=== PATIENT | female | born 1955 | race Caucasian/White ===

== ENCOUNTER → 2020-12-10 | Outpatient (CLI) | payer MEDICARE, OTHER ==
--- NOTE | 2020-12-14 10:59 | MM ---
Reason for exam: screening (asymptomatic). Last mammogram was performed 10 years and 3 months ago. History: Patient is postmenopausal. Took hormonal contraceptives for 1 year. Physical Findings: A clinical breast exam by your physician is recommended on an annual basis and results should be correlated with mammographic findings. MG 3D Screening Mammo W/Cad Bilateral CC and MLO view(s) were taken. Prior study comparison: December 02, 2019, mammogram, performed at [facility]. November 14, 2018, mammogram, performed at [facility]. August 02, 2017, mammogram, performed at [facility]. June 29, 2016, mammogram, performed at [facility]. April 25, 2013, mammogram, performed at [facility]. There are scattered fibroglandular densities. No significant changes when compared with prior studies. ASSESSMENT: Benign, BI-RAD 2 RECOMMENDATION: Routine screening mammogram of both breasts in 1 year.
== END | disposition home or self-care (01) ==
LOC: RADMAMWWP 13:56
PROVIDERS: ATTEND Family Medicine
DX: Z12.31 Encounter for screening mammogram for malignant neoplasm of breast (principal)
CPT/HCPCS: 77063; 77067

== ENCOUNTER 2020-12-28 23:06 | Emergency (ER) | payer MEDICARE, OTHER ==
[2020-12-28 23:47] VITALS: BP 138/75; PULSE 71; RESP 18; TEMP 98.3
[2020-12-29] MEDS ORDERED: PANTOPRAZOLE 40 MG/10 ML VIAL IVP STA (00:09)
[2020-12-29] MEDS ORDERED: HYDROmorphone 1 MG/ML 1 ML SYRINGE IVP STA (00:11)
--- NOTE | 2020-12-29 00:12 | ED ---
Abdominal Pain HPI - General Chief Complaint: Abdominal Pain Stated Complaint: Side/Back Pain Time Seen by Provider: 12/28/20 23:25 Source: patient, RN notes reviewed, old records reviewed Mode of arrival: ambulatory Limitations: no limitations - History of Present Illness Initial Comments: This is a 65-year-old female fevers. Patient presents today for evaluation of severe right flank pain right lower quadrant abdominal pain patient otherwise has no history of bariatric surgery. Patient denying any fevers. Symptoms have nausea without vomiting. No diarrhea. No other surgeries. MD Complaint: abdominal pain -: days(s) Location: diffuse, RLQ Radiation: RLQ, R flank Migration to: suprapubic Severity: moderate Severity scale (1-10): 4 Quality: cramping, stabbing Consistency: constant Improves With: nothing Worsens With: nothing Associated Symptoms: nausea Treatments Prior to Arrival: prescription analgesics - Related Data Allergies Allergy/AdvReac Type Severity Reaction Status Date / Time morphine AdvReac Rapid Verified 12/28/20 23:45 Heart Rate Penicillins AdvReac Anaphylaxis Verified 12/28/20 23:45 Sulfa (Sulfonamide AdvReac Rash/Hives Verified 12/28/20 23:45 Antibiotics) Review of Systems ROS Statement: Those systems with pertinent positive or pertinent negative responses have been documented in the HPI. ROS Other: All systems not noted in ROS Statement are negative. Past Medical History Past Medical History: Asthma History of Any Multi-Drug Resistant Organisms: None Reported Past Surgical History: Bariatric Surgery, Joint Replacement, Orthopedic Surgery Past Psychological History: No Psychological Hx Reported Smoking Status: Former smoker Past Alcohol Use History: Occasional Past Drug Use History: None Reported General Exam Limitations: no limitations General appearance: alert, in no apparent distress Head exam: Present: atraumatic, normocephalic, normal inspection Eye exam: Present: normal appearance, PERRL, EOMI. Absent: scleral icterus, conjunctival injection, periorbital swelling ENT exam: Present: normal exam, mucous membranes moist Neck exam: Present: normal inspection. Absent: tenderness, meningismus, lymphadenopathy Respiratory exam: Present: normal lung sounds bilaterally. Absent: respiratory distress, wheezes, rales, rhonchi, stridor Cardiovascular Exam: Present: regular rate, normal rhythm, normal heart sounds. Absent: systolic murmur, diastolic murmur, rubs, gallop, clicks GI/Abdominal exam: Present: soft, normal bowel sounds. Absent: distended, tenderness, guarding, rebound, rigid Extremities exam: Present: normal inspection, full ROM, normal capillary refill. Absent: tenderness, pedal edema, joint swelling, calf tenderness Back exam: Present: normal inspection Neurological exam: Present: alert, oriented X3, CN II-XII intact Psychiatric exam: Present: normal affect, normal mood Skin exam: Present: warm, dry, intact, normal color. Absent: rash Course Vital Signs 12/28/20 23:40 Temperature 98.3 F Pulse Rate 71 Respiratory 18 Rate Blood Pressure 138/75 O2 Sat by Pulse 98 Oximetry - Reevaluation(s) Reevaluation #1: 12/29/20 01:02 Medical record is reviewed Reevaluation #2: 12/29/20 02:04 Patient symptoms are much improved Reevaluation #3: 12/29/20 02:05 At this point patient feels good for discharge Reevaluation #4: 12/29/20 02:05 Patient's informed results and questions answered Medical Decision Making - Medical Decision Making 65 female to the ER for evaluation of abdominal pain right-sided kidney stone. Ration his pain is well-controlled currently and can be discharged home - Lab Data Result diagrams: 12/29/20 00:32 Lab Results 12/29/20 12/29/20 12/29/20 Range/Units 00:32 00:32 00:32 Sodium 141 (137-145) mmol/L Potassium 4.5 (3.5-5.1) mmol/L Chloride 108 H (98-107) mmol/L Carbon Dioxide 25 (22-30) mmol/L Anion Gap 8 mmol/L BUN 28 H (7-17) mg/dL Creatinine 1.01 (0.52-1.04) mg/dL Est GFR (CKD-EPI)AfAm 68 (>60 ml/min/1.73 sqM) Est GFR (CKD-EPI)NonAf 59 (>60 ml/min/1.73 sqM) Glucose 113 H (74-99) mg/dL Plasma Lactic Acid Efrain 0.7 (0.7-2.0) mmol/L Calcium 9.3 (8.4-10.2) mg/dL Total Bilirubin 0.5 (0.2-1.3) mg/dL AST 101 H (14-36) U/L ALT 88 H (4-34) U/L Alkaline Phosphatase 106 (38-126) U/L Total Protein 7.0 (6.3-8.2) g/dL Albumin 4.0 (3.5-5.0) g/dL Amylase 52 (30-110) U/L Lipase 149 (23-300) U/L Urine Color Yellow Urine Appearance Clear (Clear) Urine pH 6.0 (5.0-8.0) Ur Specific [place] 1.027 (1.001-1.035) Urine Protein Trace H (Negative) Urine Glucose (UA) Negative (Negative) Urine Ketones Negative (Negative) Urine Blood Trace H (Negative) Urine Nitrite Negative (Negative) Urine Bilirubin Negative (Negative) Urine Urobilinogen 3.0 (<2.0) mg/dL Ur Leukocyte Esterase Negative (Negative) Urine RBC 18 H (0-5) /hpf Urine WBC <1 (0-5) /hpf Ur Squamous Epith Cells 1 (0-4) /hpf Urine Mucus Rare H (None) /hpf - Radiology Data Radiology results: report reviewed (CT head and pelvis is positive for right flank pain), image reviewed Disposition Clinical Impression: Abdominal pain, Calculus of kidney, Right ureteral calculus Disposition: HOME SELF-CARE Condition: Good Instructions (If sedation given, give patient instructions): Kidney Stones (ED) Is patient prescribed a controlled substance at d/c from ED?: No Referrals: David Roland III, MD [Primary Care Provider] - 1-2 days
[2020-12-29 00:59] LABS: Appearance,Urine Clear (Clear); Bilirubin,Urine Negative (Negative); Blood,Urine Trace (Negative); Color,Urine Yellow; Glucose,Urine (UA) Negative (Negative); Ketones,Urine Negative (Negative); Leukocyte Esterase,Urine Negative (Negative); Mucus,Urine Rare /hpf; Nitrite,Urine Negative (Negative); Protein,Urine Trace (Negative); RBC,Urine 18 /hpf (0-5); Specific Gravity,Urine 1.027 (1.001-1.035); Squamous Epithelial Cell,Urine 1 /hpf (0-4); WBC,Urine <1 /hpf (0-5)
[2020-12-29 01:12] LABS: Calcium 9.3 mg/dL (8.4-10.2); Potassium 4.5 mmol/L (3.5-5.1); Total Bilirubin 0.5 mg/dL (0.2-1.3)
--- NOTE | 2020-12-29 01:49 | CT ---
EXAMINATION TYPE: CT abdomen pelvis w con DATE OF EXAM: 12/29/2020 COMPARISON: 06/30/2010 HISTORY: pain CT DLP: 1877.7 mGycm Automated exposure control for dose reduction was used. CONTRAST: Performed with IV Contrast, patient injected with 100 mL of Isovue 300. Images obtained from the diaphragm to the floor the pelvis with IV contrast. Lung bases are clear of infiltrate. There is no pleural effusion. Heart size is normal. There is no p ericardial effusion. There is previous gastric bariatric surgery. Liver is intact. There are clips fr om cholecystectomy. The bile ducts are not dilated. Spleen is intact. There is no evidence of pancrea tic mass. There is no adrenal mass. There is bilateral renal parapelvic cysts. There is right-sided hydronephro sis and hydroureter. There is obstructing 3 mm calculus distal right ureter. Bladder distends smoothl y. There is normal excretion on the left side. There is no retroperitoneal adenopathy. There is no ev idence of a pelvic mass. There is no inguinal hernia. There is no free fluid in the pelvis. There is no mesenteric edema. There is no ascites or free air. There is no sign of a bowel obstructio n. Appendix is not seen. There is no sign of thickened appendix. Lumbar vertebra have fairly normal alignment. There is no compression fracture. The bony pelvis is in tact. The hip joints are intact. There is a minimal degenerative subluxation at L3-4. IMPRESSION: Obstructing calculus distal right ureter with right-sided hydronephrosis and hydroureter. No other ca lculus seen. Renal parapelvic cysts. Renal cysts appear increased compared to old exam.
[2020-12-29] MEDS ORDERED: TAMSULOSIN 0.4 MG CAP.ER.24H PO STA (02:04)
[2020-12-29] MEDS ORDERED: ONDANSETRON 4 MG ODT STARTER PACK 2 TAB BTL PO STA (02:04)
[2020-12-29] MEDS ORDERED: IBUPROFEN 600 MG STARTER PACK 4 TAB BTL PO STA (02:04)
[2020-12-29] MEDS ORDERED: KETOROLAC 15 MG/ML 1 ML VIAL IVP STA (02:04)
[2020-12-29] MEDS ORDERED: ACET/COD 300 MG/30 MG STARTER PACK 6 TAB BTL PO STA (02:04)
[2020-12-29 02:07] LABS: HCT 37.3 % (34.0-46.0); HGB 11.7 gm/dL (11.4-16.0); MCH 26.3 pg (25.0-35.0); MCHC 31.4 g/dL (31.0-37.0); MCV 83.7 fL (80.0-100.0); Mean Platelet Volume 8.7; Platelet Count 213 k/uL (150-450); RBC 4.46 m/uL (3.80-5.40); WBC 5.6 k/uL (3.8-10.6)
[2020-12-29 03:39] LABS: Band Neutrophils % 3 %; Eosinophils # (M) 0.06 k/uL (0-0.7); Lymphocytes # (M) 1.18 k/uL (1.0-4.8); Monocytes # (M) 0.34 k/uL (0-1.0); Neutrophils % (M) 69 %; Nucleated Red Blood Cells 0 /100 WBC (0-0); Total Cells Counted 100
[2020-12-29 03:40] LABS: Large Platelets Present
[2020-12-29 03:41] LABS: Anisocytosis (M) Present
== END 2020-12-29 02:32 | disposition home or self-care (01) ==
LOC: EC 23:06
DX: N13.2 Hydronephrosis with renal and ureteral calculous obstruction (principal); J45.909 Unspecified asthma, uncomplicated; Z87.891 Personal history of nicotine dependence; Z88.2 Allergy status to sulfonamides; Z88.0 Allergy status to penicillin; Z88.5 Allergy status to narcotic agent
CPT/HCPCS: 36415; 80053; 82150; 83605; 83690; 85025; 81001; 74177; 99284; 96375; 96374; J1170; J1885; S0119; C9113; Q9967

== ENCOUNTER → 2021-01-26 | Outpatient (CLI) | payer MEDICARE, OTHER ==
--- NOTE | 2021-01-26 14:36 | US ---
EXAMINATION TYPE: US abdomen limited DATE OF EXAM: 01/26/2021 COMPARISON: 12-30-2019 CLINICAL HISTORY: R10.11 Right upper quadrant pain. EXAM MEASUREMENTS: Liver Length: 15.5 cm Gallbladder Wall: Surgically absent CBD: 0.9 cm Right Kidney: 12.2x5.3x4.6 cm Pancreas: wnl Liver: ? focal fatty deposit measuring 6.0x2.9x2.8cm Gallbladder: Surgically absent CBD: wnl after cholecystectomy Right Kidney: Extrarenal pelvis Visualized pancreas appears within normal limits. Visualized liver is heterogeneously hyperechoic. Ev aluation for focal masses suboptimal due to the heterogeneity. Gallbladder is surgically absent. No n ew biliary dilatation. Slightly prominent right renal pelvis with interval resolution of moderate to severe prior visualized hydronephrosis. IMPRESSION: Resolved right-sided hydronephrosis. Postcholecystectomy changes redemonstrated. Diffuse fatty infiltration of liver again seen. No new acute finding identified.
== END | disposition home or self-care (01) ==
LOC: RADUSWWP 12:58
PROVIDERS: ATTEND Family Medicine
DX: K76.0 Fatty (change of) liver, not elsewhere classified (principal)
CPT/HCPCS: 76705

== ENCOUNTER → 2021-02-03 | Outpatient (CLI) | payer MEDICARE, OTHER ==
[2021-02-03 09:02] LABS: Basophils % (A) 0 %; Eosinophils # (A) 0.4 k/uL (0-0.7); Eosinophils % (A) 8 %; HCT 38.1 % (34.0-46.0); HGB 11.8 gm/dL (11.4-16.0); Hypochromasia Slight; Lymphocytes # (A) 1.5 k/uL (1.0-4.8); Lymphocytes % (A) 31 %; MCH 26.3 pg (25.0-35.0); Mean Platelet Volume 8.8; Monocytes # (A) 0.2 k/uL (0-1.0); Monocytes % (A) 5 %; Neutrophils # (A) 2.6 k/uL (1.3-7.7); Neutrophils % (A) 54 %; Platelet Count 189 k/uL (150-450); RBC 4.48 m/uL (3.80-5.40); RDW 15.3 % (11.5-15.5); WBC 4.9 k/uL (3.8-10.6)
[2021-02-03 09:17] LABS: Calcium 9.4 mg/dL (8.4-10.2); Potassium 4.5 mmol/L (3.5-5.1)
[2021-02-03 10:21] LABS: Appearance,Urine Clear (Clear); Bilirubin,Urine Negative (Negative); Blood,Urine Negative (Negative); Color,Urine Yellow; Glucose,Urine (UA) Negative (Negative); Ketones,Urine Negative (Negative); Leukocyte Esterase,Urine Negative (Negative); Nitrite,Urine Negative (Negative); PH, Urine 6.5 (5.0-8.0); Protein,Urine Negative (Negative); Specific Gravity,Urine 1.016 (1.001-1.035); Urobilinogen,Urine <2.0 mg/dL (<2.0)
== END | disposition home or self-care (01) ==
LOC: LABPAT 08:20
PROVIDERS: ATTEND Urology
DX: Z01.812 Encounter for preprocedural laboratory examination (principal); N20.1 Calculus of ureter
CPT/HCPCS: 36415; 80048; 81003; 85025; 87086

== ENCOUNTER → 2021-02-12 | Day surgery (SDC) | payer MEDICARE, OTHER ==
[2021-02-10 11:41] VITALS: BMI 40.3
--- NOTE | 2021-02-11 15:02 | P.HPIHPCON ---
History of Present Illness H&P Date: 02/11/21 This is a 65-year-old female with history of a 3 mm right-sided distal ureter stone. She is symptomatic from her stone. The stone has been present since December 29, she has not passed the stone and continues to have flank pain. Discussed with her the option of a ureteroscopy with holmium laser. Discussed with her the risk which includes but not limited to bleeding, infection, injury to the ureter. Discussed also risks of anesthesia. She understood all the risk and agreed to proceed Consent for Procedure: I have explained the operation/procedure to the patient, including the risks, benefits, side effects, alternative therapies (including not receiving the propo sed treatment or service), the likelihood of the patient achieving his/her goals, and potential recuperation problems for the procedure/sedation/analgesia, as well as any blood products, if indicated. I also explained to the patient the risks, benefits and side effects of the alternatives, as well as the risks related to not receiving the proposed procedure, care, treatment, or services. Past Medical History Past Medical History: Asthma, Deep Vein Thrombosis (DVT), GERD/Reflux, Osteoarthritis (OA), Thyroid Disorder Additional Past Medical History / Comment(s): Current kidney stones. Heart murmur. Varicose veins. History of Any Multi-Drug Resistant Organisms: None Reported Past Surgical History: Bariatric Surgery, Joint Replacement, Orthopedic Surgery Additional Past Surgical History / Comment(s): 3 left arm and hand surgeries, left wrist carpal tunnel surgery, thumb joint surgery with metal placed, right knee replacement with revision, right ankle surgery. Past Anesthesia/Blood Transfusion Reactions: Previous Problems w/ Anesthesia, Postoperative Nausea & Vomiting (PONV) Additional Past Anesthesia/Blood Transfusion Reaction / Comment(s): Difficult IV start. Slow to wake up, becomes aggressive if people use loud voices, yell at her to wake up. Past Psychological History: PTSD Smoking Status: Former smoker, Light tobacco smoker Past Alcohol Use History: Occasional Additional Past Alcohol Use History / Comment(s): Quit smoking 44 yrs ago, was a social smoker. Past Drug Use History: None Reported - Past Family History Mother Family Medical History: Cancer, Deep Vein Thrombosis (DVT) Additional Family Medical History / Comment(s): Skin cancer. Father Family Medical History: Cancer Additional Family Medical History / Comment(s): Skin cancer. Medications and Allergies Home Medications Medication Instructions Recorded Confirmed Type Albuterol Sulfate [Proventil Hfa] 1 puff INHALATION Q4-6H PRN 02/10/21 02/10/21 History Calcium Citrate/Vitamin D3 1 each PO DAILY 02/10/21 02/10/21 History [Citracal + D Maximum [place]] Cholecalciferol [Vitamin D3 (25 25 mcg PO DAILY 02/10/21 02/10/21 History Mcg = 1000 Iu)] Cyanocobalamin (Vitamin B-12) 5,000 mcg PO DAILY 02/10/21 02/10/21 History [Vitamin B12] Diclofenac Sodium 25 mg PO TID 02/10/21 02/10/21 History Flovent (Unknown Dose) 1 puff INHALATION DIRECTED PRN 02/10/21 02/10/21 History Fluticasone Nasal [place] [Flonase 1 spray EA NOSTRIL DAILY 02/10/21 02/10/21 History Nasal [place]] Gabapentin 600 mg PO TID 02/10/21 02/10/21 History HYDROcodone/APAP 7.5-325MG [[place] 1 tab PO TID 02/10/21 02/10/21 History 7.5-325] Hyoscyamine Sulfate [Hyoscyamine 0.125 mg SL DIRECTED PRN 02/10/21 02/10/21 History Sulfate SL] Levothyroxine Sodium [Synthroid] 125 mcg PO QAM 02/10/21 02/10/21 History Loratadine 10 mg PO DAILY 02/10/21 02/10/21 History Multivit-Min/FA/Lycopen/Lutein 1 each PO DAILY 02/10/21 02/10/21 History [Centrum Silver Tablet] Pantoprazole [Protonix] 40 mg PO QAM 02/10/21 02/10/21 History Rizatriptan Benzoate [Maxalt] 10 mg PO DIRECTED PRN 02/10/21 02/10/21 History Topiramate [Topiramate ER] 100 mg PO DAILY 02/10/21 02/10/21 History Zinc 50 mg PO DAILY 02/10/21 02/10/21 History Allergies Allergy/AdvReac Type Severity Reaction Status Date / Time morphine Allergy Severe Rapid Verified 02/10/21 11:01 Heart Rate Penicillins Allergy Anaphylaxis Verified 02/10/21 11:01 Sulfa (Sulfonamide Allergy Rash/Hives Verified 02/10/21 11:01 Antibiotics) paper tape Allergy Tears skin Uncoded 02/10/21 11:01 Surgical - Exam - General no distress, moderate pain - Eyes PERRL, normal ocular movement - ENT normal nares, normal mucosa - Respiratory normal expansion, normal respiratory effort - Abdomen Abdomen: soft, non tender - Psychiatric oriented to time, oriented to person, oriented to place Assessment and Plan Assessment: 65-year-old female with history of a 3 mm right-sided distal ureteral stone -Or for right-sided ureteroscopy, with holmium laser lithotripsy, stone basketing and stent insertion
[~2021-02-12] MED LIST: .fentaNYL (PF) 50 MCG/ML 2 ML AMP IV PRN; .fentaNYL (PF) 50 MCG/ML 2 ML AMP ONE; CIPROFLOXACIN/DEXTROSE PMX 400 MG in DEXTROSE/WATER 1 200ML.BAG IVPB PRN; DEXAMETHASONE SOD PHOSPHATE 4 MG/ML 1 ML VIAL IV ONE; DEXAMETHASONE SOD PHOSPHATE 4 MG/ML 1 ML VIAL IVP ONE; IOPAMIDOL-370 50ML BTL MISCELLANE ONE; LACTATED RINGERS 1,000 ML IV SCH; LIDOCAINE 1% (10MG/ML) FOR IV START IV ONE; LIDOCAINE 1% INJ 10MG/ML (20 ML MDV) ONE; MIDAZOLAM 2 MG/2 ML VIAL IV PRN; MIDAZOLAM 2 MG/2 ML VIAL ONE; ONDANSETRON 4 MG/2 ML VIAL IVP ONE; PROPOFOL 10 MG/ML 20 ML VIAL IV ONE; SCOPOLAMINE 1.5MG/72HR PATCH TRANSDERM ONE
--- NOTE | 2021-02-12 11:31 | XR ---
EXAMINATION TYPE: XR KUB DATE OF EXAM: 02/12/2021 COMPARISON: NONE HISTORY: Preop TECHNIQUE: One view abdominal series FINDINGS: The osseous structures are intact. The bowel gas pattern is nonspecific. Lung bases are clear. Surg ical clips in the right upper quadrant. Renal parenchyma yesterday and they report. No definite suspi cious calcifications. IMPRESSION: 1. Nonspecific abdomen.
--- NOTE | 2021-02-12 13:02 | FL ---
EXAMINATION TYPE: FL guidance operating room DATE OF EXAM: 02/12/2021 HISTORY: Fluoroscopy time Less than 1 minute of fluoroscopy provided. IMPRESSION: 1. Fluoroscopy time.
[2021-02-12 13:06] VITALS: TEMP 96.8
[2021-02-12 14:15] VITALS: PULSE 65
[2021-02-12 14:32] VITALS: BP 126/62; RESP 17
--- NOTE | 2021-02-12 16:34 | P.OP ---
Date of Procedure: 02/12/21 Preoperative Diagnosis: Right ureteral stone Postoperative Diagnosis: Right hydronephrosis Procedure(s) Performed: Cystoscopy, right ureteroscopy, retrograde pyelogram, and stent placement Implants: 6-Iraqi by 24 cm stent in the right ureter Anesthesia: EDWIN Surgeon: Tommy Mares Estimated Blood Loss (ml): 1 Pathology: none sent Condition: stable Disposition: PACU Indications for Procedure: This is a 65-year-old female with history of a 3 mm right-sided distal ureter stone. She is symptomatic from her stone. The stone has been present since December 29, she has not passed the stone and continues to have flank pain. Discussed with her the option of a ureteroscopy with holmium laser. Discussed with her the risk which includes but not limited to bleeding, infection, injury to the ureter. Discussed also risks of anesthesia. She understood all the risk and agreed to proceed Operative Findings: No stones along the course of the ureter, torturous proximal ureter with moderate hydronephrosis Description of Procedure: Patient was brought to the operating room, general anesthesia was induced. She was prepped and draped in sterile fashion and placed in dorsal lithotomy position. A cystoscopy fitted with a 21-[place]ra[place] sheath was inserted per urethra, cystoscopy was performed which showed no abnormality within the bladder. Attention was then carried to the right ureteral orifice. A semirigid ureteroscope was advanced through the urethra and up the right ureteral orifice, there was mild narrowing of the distal ureter, but I was able to advance the scope past the narrowing. The ureteroscope was advanced all the way up to the proximal ureter without any difficulties, there was no stones visualized. Of note at that point the proximal ureter was fairly torturous. Retrograde Po lygram was performed through the ureteroscope which showed a torturous proximal ureter with moderate hydronephrosis. At this time a sensor wire was advanced through the ureteroscope and into the renal pelvis, the sensor wire did straighten out the ureter, and I wasn able to advance the semirigid ureteroscope all the way past the UPJ no stones were visualized. Pull back ureteroscopy was performed which showed no injury to the ureter or any ureteral stones, as the ureteroscope was withdrawn a sensor wire was advanced through. Given the finding of hydronephrosis decision was made to proceed with a stent. The stent was passed over the wire, the proximal curl was visualized on fluoroscopy and the distal curl was visualized using the cystoscope. The bladder was emptied at the end of the case. Patient tolerated procedure well was taken to recovery in stable condition. She will follow up in 1-2 weeks for stent removal
== END ==
LOC: OR 10:14
PROVIDERS: ATTEND Urology
DX: N13.2 Hydronephrosis with renal and ureteral calculous obstruction (principal); J45.909 Unspecified asthma, uncomplicated; M19.90 Unspecified osteoarthritis, unspecified site; E07.9 Disorder of thyroid, unspecified; K21.9 Gastro-esophageal reflux disease without esophagitis; F43.10 Post-traumatic stress disorder, unspecified; Z86.718 Personal history of other venous thrombosis and embolism; Z87.891 Personal history of nicotine dependence; Z79.899 Other long term (current) drug therapy; Z88.5 Allergy status to narcotic agent; Z88.0 Allergy status to penicillin; Z88.2 Allergy status to sulfonamides; Z87.442 Personal history of urinary calculi
CPT/HCPCS: 74018; 52332; C2625; C1769; J2250; J1100; J2405; J2001; J3010; J0744; J2704; Q9967

== ENCOUNTER → 2021-04-27 | Outpatient (CLI) | payer MEDICARE, OTHER ==
--- NOTE | 2021-04-27 09:51 | US ---
EXAMINATION TYPE: US kidneys/renal and bladder DATE OF EXAM: 04/27/2021 COMPARISON: CT, US, KUB CLINICAL HISTORY: N20.0 Calculus of kidney. EXAM MEASUREMENTS: Right Kidney: 12.7 x 3.7 x 4.5 cm Left Kidney: 10.7 x 5.1 x 5.1 cm Patient of large body habitus with extensive overlying bowel gas technically difficult, limited study . Right Kidney: prominent renal pelvis, multiple parapelvic cysts largest measuring 1.4 x 0.9 x 1.2cm Left Kidney:multiple parapelvic cyst, probable largest measuring 2.0 x 1.7 x 2.2cm, very limited visu alization Bladder: wnl IMPRESSION: Findings are most suggestive of multiple parapelvic renal cysts with no definite nephrolithiasis. Mil d prominence of the right renal pelvis may represent extrarenal pelvis or very mild hydronephrosis
== END | disposition home or self-care (01) ==
LOC: RADUSWWP 08:57
PROVIDERS: ATTEND Urology
DX: N20.0 Calculus of kidney (principal)
CPT/HCPCS: 76770

== ENCOUNTER → 2021-09-08 | Outpatient (CLI) | payer MEDICARE, OTHER | END | disposition home or self-care (01) | LOC: LABWHC1 09:04 | PROVIDERS: ATTEND Orthopaedic Surgery Adult Reconstructive Orthopaedic Surgery | DX: Z47.1 Aftercare following joint replacement surgery (principal); Z96.651 Presence of right artificial knee joint; T84.84XA Pain due to internal orthopedic prosthetic devices, implants and grafts, initial encounter | CPT/HCPCS: 36415; 85652; 86140 ==

== ENCOUNTER → 2021-11-16 | Outpatient (CLI) | payer MEDICARE, OTHER ==
--- NOTE | 2021-11-16 10:36 | CT ---
EXAMINATION TYPE: CT foot LT wo con DATE OF EXAM: 11/16/2021 COMPARISON: None HISTORY: foot pain, pes planus CT DLP: 240.8 mGycm Automated exposure control for dose reduction was used. Contrast: None Technique: Axial images 2 mm thick sections. Reconstructed images in the coronal and sagittal planes. 3-D reconstructed images performed on a separate computer by the technologist are reviewed. Images a re for surgery planning. FINDINGS: Plantar calcaneal heel spur is present. No acute fractures or dislocations are evident. The ankle mor tise appears intact. Joint spaces are preserved. There may be some hammertoes present. Soft tissues a ppear normal. Bohler's angle appears normal. Note is made of os talus, a normal variant. IMPRESSION: 1. NO ACUTE OSSEOUS ABNORMALITY RADIOGRAPHICALLY APPARENT.
== END | disposition home or self-care (01) ==
LOC: RADCTMAIN 07:24
PROVIDERS: ATTEND Orthopaedic Surgery
DX: M21.42 Flat foot [pes planus] (acquired), left foot (principal)

== ENCOUNTER → 2021-12-14 | Outpatient (CLI) | payer MEDICARE, OTHER ==
--- NOTE | 2021-12-15 19:52 | MM ---
Reason for Exam: Screening (asymptomatic). Last mammogram was performed 1 year(s) and 1 month(s) ago. Patient History: Menarche at age 13. First Full-Term at age 20. Postmenopausal. Patient used Hormonal Contraceptives for 1 year. Daughter had ovarian cancer. Risk Values: Sheree 5 year model risk: 1.2%. NCI Lifetime model risk: 4.6%. Prior Study Comparison: 11/14/2018 Screening Mammogram, [facility]. 12/02/2019 Screening Mammogram, [facility]. 12/10/2020 Bilateral Screening Mammogram, [facility]. Tissue Density: There are scattered fibroglandular densities. Findings: Analyzed By CAD. Benign punctate calcifications are present. Spherical calcifications are on the left. No suspicious groups of microcalcifications, spiculated or lobular masses, architectural distortion or other secondary signs of malignancy are mammographically apparent. Overall Assessment: Probably benign, BI-RAD 3 Management: Screening Mammogram of both breasts in 1 year. A negative mammogram report should not preclude additional follow up of suspicious palpable abnormalities. Patient should continue monthly self breast exam. A clinical breast exam by your physician is recommended on an annual basis and results should be correlated with mammographic findings. Electronically signed and approved by: Jigar Hager D.O. Radiologis
== END | disposition home or self-care (01) ==
LOC: RADMAMWWP 10:02
PROVIDERS: ATTEND Family Medicine
DX: Z12.31 Encounter for screening mammogram for malignant neoplasm of breast (principal)
CPT/HCPCS: 77063; 77067

== ENCOUNTER 2021-12-24 10:50 | Emergency (ER) | payer MEDICARE, OTHER ==
[2021-12-24 11:10] VITALS: BP 119/73; PULSE 70; RESP 20; TEMP 98.5
--- NOTE | 2021-12-24 12:13 | ED ---
Extremity Problem HPI - General Chief complaint: Extremity Problem,Nontraumatic Stated complaint: lt foot post op Time Seen by Provider: 12/24/21 11:40 Source: patient, RN notes reviewed Mode of arrival: wheelchair Limitations: no limitations - History of Present Illness Initial comments: Patient is a pleasant 66-year-old female presents the emergency room with complaints of pain and concerns regarding swelling of her left lower extremity. She is 8 days postoperative of ankle reconstructive surgery by her surgeon in [place]. She reports that she has similar surgery completed on her other leg last year without complications. She reports that she contacted her surgeon's office who advised her that she may have her surgical dressing removed here in the emergency room in the placed into her surgical boot but that she should have a Doppler completed to rule out a DVT. 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 The area of most pain is at the site of a incision. She has a total of 7 incisions both to the medial and lateral aspects of her ankle along with the dorsal aspect of her foot went to her here in one to her calf. All incisions has ricky intact without any evidence of purulent drainage or erythema. In addition to her arthritis and orthopedic surgical history she has a past medical history significant for asthma. - Related Data Home Medications Medication Instructions Recorded Confirmed Albuterol Sulfate [Proventil Hfa] 1 puff INHALATION Q4-6H PRN 02/10/21 02/12/21 Calcium Citrate/Vitamin D3 1 each PO DAILY 02/10/21 02/12/21 [Citracal + D Maximum Caplet] Cholecalciferol [Vitamin D3 (25 25 mcg PO DAILY 02/10/21 02/12/21 Mcg = 1000 Iu)] Cyanocobalamin (Vitamin B-12) 5,000 mcg PO DAILY 02/10/21 02/12/21 [Vitamin B12] Diclofenac Sodium [Voltaren] 25 mg PO TID 02/10/21 02/12/21 Flovent (Unknown Dose) 1 puff INHALATION DIRECTED PRN 02/10/21 02/12/21 Fluticasone Nasal [place] [Flonase 1 spray EA NOSTRIL DAILY 02/10/21 02/12/21 [place]al [place]] Gabapentin 600 mg PO TID 02/10/21 02/12/21 HYDROcodone/APAP 7.5-325MG [[place] 1 tab PO TID 02/10/21 02/12/21 7.5-325] Hyoscyamine Sulfate [Hyoscyamine 0.125 mg SL DIRECTED PRN 02/10/21 02/12/21 Sulfate SL] Levothyroxine Sodium [Synthroid] 125 mcg PO QAM 02/10/21 02/12/21 Loratadine 10 mg PO DAILY 02/10/21 02/12/21 Multivit-Min/FA/Lycopen/Lutein 1 each PO DAILY 02/10/21 02/12/21 [Centrum Silver Tablet] Pantoprazole [Protonix] 40 mg PO QAM 02/10/21 02/12/21 Rizatriptan Benzoate [Maxalt] 10 mg PO DIRECTED PRN 02/10/21 02/12/21 Topiramate [Topiramate ER] 100 mg PO DAILY 02/10/21 02/12/21 Zinc 50 mg PO DAILY 02/10/21 02/12/21 Previous Rx's Medication Instructions Recorded Ciprofloxacin HCl [Cipro] 250 mg PO Q12HR 3 Days #6 tab 02/12/21 Ketorolac [Toradol] 10 mg PO Q6HR PRN #15 tab 02/12/21 Allergies Allergy/AdvReac Type Severity Reaction Status Date / Time morphine Allergy Severe Rapid Verified 12/24/21 11:10 Heart Rate Penicillins Allergy Anaphylaxis Verified 12/24/21 11:10 Sulfa (Sulfonamide Allergy Rash/Hives Verified 12/24/21 11:10 Antibiotics) paper tape Allergy Tears skin Uncoded 12/24/21 11:10 Review of Systems ROS Statement: Those systems with pertinent positive or pertinent negative responses have been documented in the HPI. ROS Other: All systems not noted in ROS Statement are negative. Past Medical History Past Medical History: Asthma History of Any Multi-Drug Resistant Organisms: None Reported Past Surgical History: Bariatric Surgery, Joint Replacement, Orthopedic Surgery Past Psychological History: No Psychological Hx Reported Smoking Status: Former smoker Past Alcohol Use History: Occasional Past Drug Use History: None Reported General Exam Limitations: no limitations General appearance: alert, in no apparent distress Head exam: Present: atraumatic, normocephalic, normal inspection Eye exam: Present: normal appearance, PERRL, EOMI. Absent: scleral icterus, conjunctival injection, periorbital swelling ENT exam: Present: normal exam, mucous membranes moist Neck exam: Present: normal inspection Respiratory exam: Absent: respiratory distress, accessory muscle use Cardiovascular Exam: Present: regular rate. Absent: clicks GI/Abdominal exam: Absent: distended Rectal exam: Present: deferred Left Ankle exam: Present: tenderness, swelling, ecchymosis. Absent: normal inspection (Multiple incisions without induration or drainage (2 lateral, 1 medial). [place] intact), full ROM Foot/Toe exam: Present: swelling, ecchymosis. Absent: normal inspection (Incision to heal x1 and 2 to dorsal aspect without evidence of infection; ricky intact), full ROM Neurovascular tendon exam: Absent: abnormal cap refill, pallor Gait: observed and limited by pain Back exam: Present: normal inspection Neurological exam: Present: alert, oriented X3, CN II-XII intact Psychiatric exam: Present: normal affect, normal mood Skin exam: Present: other (as above) Course Vital Signs 12/24/21 11:08 Temperature 98.5 F Pulse Rate 70 Respiratory 20 Rate Blood Pressure 119/73 O2 Sat by Pulse 99 Oximetry Medical Decision Making - Medical Decision Making 66-year-old female presented to the emergency room at the direction of her surgeon for evaluation of a blood clot due to increased swelling and pain in her left lower extremity after having ankle surgery 8 days ago. No indication for laboratory studies. Will check ultrasound of the lower extremity to rule out DVT. Doppler of lower extremity negative for DVT. Patient was surgical boot and walker which she is to utilize her mobility and splinting instructions by her surgeon. Will discharge home with follow-up with her orthopedic surgeon as already scheduled. Case discussed with Dr. Rivera. - Radiology Data Radiology results: report reviewed, image reviewed Ultrasound of the lower extremity negative for DVT. Disposition Clinical Impression: Edema of lower extremity Disposition: HOME SELF-CARE Condition: Stable Instructions (If sedation given, give patient instructions): Walking Boot (ED), Leg Edema (ED) Additional Instructions: Please continue to use her surgical boot and walker as advised by her surgeon. Please keep your upcoming appointment with your orthopedic surgeon. Continue to monitor incision sites for evidence of infection including increased swelling, redness or drainage. Please return to the Emergency Department if symptoms worsen or any other concerns. Is patient prescribed a controlled substance at d/c from ED?: No Referrals: David Roland III, MD [Primary Care Provider] - 1-2 days Time of Disposition: 12:54
--- NOTE | 2021-12-24 12:27 | US ---
EXAMINATION TYPE: US venous doppler duplex LE LT DATE OF EXAM: 12/24/2021 12:18 PM COMPARISON: US 2009 CLINICAL HISTORY: pain swelling post op. Left leg pain and swelling since recent foot surgery SIDE PERFORMED: Left TECHNIQUE: The lower extremity deep venous system is examined utilizing real time linear array sonog shaina with graded compression, doppler sonography and color-flow sonography. VESSELS IMAGED: Common Femoral Vein Deep Femoral Vein Greater Saphenous Vein * Femoral Vein Popliteal Vein Small Saphenous Vein * Proximal Calf Veins (* superficial vessels) Grayscale, color doppler, spectral doppler imaging performed of the deep veins of the lower extremiti es. There is normal flow, compressibility, vascular waveforms. Left Leg: Appears negative for DVT IMPRESSION: No evident deep venous arthrosis within the left lower extremity from the level the knee centrally
== END 2021-12-24 13:09 | disposition home or self-care (01) ==
LOC: EC 10:50
DX: R60.0 Localized edema (principal); Z48.89 Encounter for other specified surgical aftercare; J45.909 Unspecified asthma, uncomplicated; Z87.891 Personal history of nicotine dependence; Z88.0 Allergy status to penicillin; Z88.2 Allergy status to sulfonamides; Z88.8 Allergy status to other drugs, medicaments and biological substances; Z79.51 Long term (current) use of inhaled steroids
CPT/HCPCS: 99283

== ENCOUNTER → 2022-01-10 | Outpatient (CLI) | payer MEDICARE, OTHER ==
--- NOTE | 2022-01-10 17:28 | CA ---
Transthoracic Echo Report Name: Eloina Morris Age: 66 Gender: F : 1955 Exam Date: 01/10/2022 11:20 Exam Location: [facility] Ht (in): 66 Wt (lb): 250 Ordering Physician: David Roland MD Attending/Referring Phys: [id number], [place] Visual Effects Editor Maureen Luna RDCS Procedure CPT: Indications: R01.1 Murmur Cardiac Hx: Technical Quality: Fair Contrast 1: Total Dose (mL): Contrast 2: Total Dose (mL): MEASUREMENTS (Male / Female) Normal Values 2D ECHO LV Diastolic Diameter PLAX 5.0 cm 4.2 - 5.9 / 3.9 - 5.3 cm LV Systolic Diameter PLAX 3.3 cm IVS Diastolic Thickness 0.9 cm 0.6 - 1.0 / 0.6 - 0.9 cm LVPW Diastolic Thickness 1.1 cm 0.6 - 1.0 / 0.6 - 0.9 cm LV Relative Wall Thickness 0.4 RV Internal Dim ED PLAX 2.9 cm LA Systolic Diameter LX 3.3 cm 3.0 - 4.0 / 2.7 - 3.8 cm LA Volume 50.6 cm??? 18 - 58 / 22 - 52 cm??? M-MODE Aortic Root Diameter MM 3.4 cm MV E Point Septal Separation 0.7 cm AV Cusp Separation MM 2.4 cm DOPPLER AV Peak Velocity 147.7 cm/s AV Peak Gradient 8.7 mmHg AI Peak Velocity 324.5 cm/s AI Peak Gradient 42.1 mmHg AI Pressure Half Time 633.9 ms MV Area PHT 2.1 cm??? Mitral E Point Velocity 65.9 cm/s Mitral A Point Velocity 92.3 cm/s Mitral E to A Ratio 0.7 MV Deceleration Time 369.8 ms TR Peak Velocity 245.4 cm/s TR Peak Gradient 24.1 mmHg Right Ventricular Systolic Press 29.1 mmHg FINDINGS Left Ventricle Left ventricular ejection fraction is estimated at 60-65 %. Left ventricular cavity size normal. Mildly increased posterior wall thickness. Right Ventricle Normal right ventricular size and function. Right ventricular systolic pressure within normal limits. Right Atrium Normal right atrial size. Left Atrium Normal left atrial size. No evidence for an atrial septal defect. Mitral Valve Structurally normal mitral valve. No mitral stenosis, regurgitation or prolapse. Aortic Valve Trileaflet aortic valve. Mild aortic regurgitation. Tricuspid Valve Structurally normal tricuspid valve. Trace tricuspid regurgitation. Pulmonic Valve Structurally normal pulmonic valve. Pericardium Normal pericardium. No pericardial effusion. Aorta Normal size aortic root and proximal ascending aorta. CONCLUSIONS Normal LV systolic function Mild aortic regurgitation Previewed by: Dr. Thom Nixon MD (Electronically Signed) Final Date: 10 January 2022 17:28
== END | disposition home or self-care (01) ==
LOC: RADECHMAIN 11:10
PROVIDERS: ATTEND Family Medicine
DX: I35.0 Nonrheumatic aortic (valve) stenosis (principal)
CPT/HCPCS: 93306

== ENCOUNTER → 2022-06-09 | Outpatient (CLI) | payer MEDICARE, OTHER ==
--- NOTE | 2022-06-09 13:58 | US ---
EXAMINATION TYPE: US venous doppler duplex LE RT DATE OF EXAM: 06/09/2022 1:17 PM COMPARISON: NONE CLINICAL HISTORY: M79.604 PAIN RT LEG. Pt states pain and swelling right leg SIDE PERFORMED: Right TECHNIQUE: The lower extremity deep venous system is examined utilizing real time linear array sonog shaina with graded compression, doppler sonography and color-flow sonography. VESSELS IMAGED: Common Femoral Vein Deep Femoral Vein Greater Saphenous Vein * Femoral Vein Popliteal Vein Small Saphenous Vein * Proximal Calf Veins (* superficial vessels) Right Leg: Negative for DVT, Grayscale, color doppler, spectral doppler imaging performed of the alba p veins of the lower extremities. There is normal flow, compressibility, vascular waveforms. Attempted to call office with results at time of exam, no answer and unable to leave message IMPRESSION: No evidence for deep vein tendinosis of the right lower extremity.
== END | disposition home or self-care (01) ==
LOC: RADUSWWP 12:56
PROVIDERS: ATTEND Family Medicine
DX: R22.41 Localized swelling, mass and lump, right lower limb (principal); M79.604 Pain in right leg

== ENCOUNTER → 2022-08-16 | Outpatient (CLI) | payer MEDICARE, OTHER ==
--- NOTE | 2022-08-16 18:46 | MR ---
EXAMINATION TYPE: MR cervical spine wo con DATE OF EXAM: 08/16/2022 INDICATION: Patient age: Female; 66 years old; Reason for study: M50.30 DDD; PHH. Neck pain, Headache, Numbness in fingers COMPARISON: None . TECHNIQUE: Multi planar, multi sequence imaging was performed utilizing: T1-weighted, T2-weighted, an d turbo inversion recovery imaging of the cervical spine. IV Contrast: None FINDINGS: Alignment: The cervical vertebral bodies have preserved heights. Alignment is within normal limits gi seema patient positioning. Bones: Bone signal is within normal limits. No abnormal bone marrow edema on inversion recovery seque nces. Height T2 high T1 signal C7 vertebral body lesion favored represent vertebral body hemangioma. Cord: The spinal cord is unremarkable with regards to their signal intensity and morphology. Discs: Multilevel disc desiccation is present. C2-C3: No significant disc pathology. The spinal canal is patent. No neural foraminal stenosis. C3-C4: No significant disc pathology. The spinal canal is patent. Bilateral facet and uncovertebral joint arthropathy are present with mild right and moderate left neural foraminal stenosis. C4-C5: A disc osteophyte complex is present which minimally narrows the ventral subarachnoid space. Bilateral facet and uncovertebral joint arthropathy are present with moderate bilateral neural cherelle inal stenosis. C5-C6: No significant disc pathology. The spinal canal is patent. Bilateral facet and uncovertebral joint arthropathy are present with mild bilateral neural foraminal stenosis. C6-C7: A disc osteophyte complex is present with mild spinal canal stenosis. Bilateral facet and unc overtebral joint arthropathy are present with mild bilateral neural foraminal stenosis. C7-T1: No significant disc pathology. The spinal canal is patent. No neural foraminal stenosis. Other: There is loss of flow void within the right vertebral artery intracranial portion. series 601 image 50 IMPRESSION: 1. No evidence for disc herniation or significant spinal canal stenosis. 2. Multilevel disc degeneration with associated osteoarthritic changes neural foraminal stenosis at C 3-C4 left and bilateral C4-C5 with at least moderate. 3. There is loss of the normal flow void within the right vertebral artery superior portion. Findings could represent slow flow versus occlusion versus artifact. Consider further evaluation with [facility]
== END | disposition home or self-care (01) ==
LOC: RADMRIMAIN 17:35
PROVIDERS: ATTEND Orthopaedic Surgery
DX: M50.30 Other cervical disc degeneration, unspecified cervical region (principal); M47.812 Spondylosis without myelopathy or radiculopathy, cervical region; M99.71 Connective tissue and disc stenosis of intervertebral foramina of cervical region
CPT/HCPCS: 72141

== ENCOUNTER 2022-09-12 07:20 | Emergency (ER) | payer MEDICARE, OTHER ==
[2022-09-12 07:27] VITALS: PULSE 70; TEMP 98.5
[2022-09-12] MEDS ORDERED: SODIUM CHLORIDE 0.9% 1,000 ML IV STA (07:50)
[2022-09-12] MEDS ORDERED: KETOROLAC 15 MG/ML 1 ML VIAL IVP STA (07:50)
--- NOTE | 2022-09-12 07:50 | ED ---
Abdominal Pain HPI - General Chief Complaint: Abdominal Pain Stated Complaint: back pain Time Seen by Provider: 09/12/22 07:30 Source: patient Mode of arrival: ambulatory Limitations: no limitations - History of Present Illness Initial Comments: 66-year-old female past medical history of nephrolithiasis presents emergency room reporting right-sided flank pain. Does have history of kidney stones and states that this pain feels similar. Pain is worse with movement and better with rest. She is taking [place] for chronic pain. To take a [place] at home without improvement in her symptoms. Denies fevers. No urinary complaints to include hematuria, dysuria or difficulty voiding. No diarrhea, constipation, black bloody stools. No fevers. No alleviating, precipitating or modifying factors - Related Data Home Medications Medication Instructions Recorded Confirmed Albuterol Sulfate [Proventil Hfa] 1 puff INHALATION Q4-6H PRN 02/10/21 01/24/22 Calcium Citrate/Vitamin D3 1 each PO DAILY 02/10/21 01/24/22 [Citracal + D Maximum [place]] Cholecalciferol [Vitamin D3 (25 25 mcg PO DAILY 02/10/21 01/24/22 Mcg = 1000 Iu)] Cyanocobalamin (Vitamin B-12) 5,000 mcg PO DAILY 02/10/21 01/24/22 [Vitamin B12] Diclofenac Sodium [Voltaren] 25 mg PO TID 02/10/21 01/24/22 Flovent (Unknown Dose) 1 puff INHALATION DIRECTED PRN 02/10/21 01/24/22 Fluticasone Nasal [place] [Flonase 1 spray EA NOSTRIL DAILY 02/10/21 01/24/22 Nas[place]] Gabapentin 600 mg PO TID 02/10/21 01/24/22 HYDROcodone/APAP 7.5-325MG [[place] 1 tab PO TID 02/10/21 01/24/22 7.5-325] Hyoscyamine Sulfate [Hyoscyamine 0.125 mg SL DIRECTED PRN 02/10/21 01/24/22 Sulfate SL] Levothyroxine Sodium [Synthroid] 125 mcg PO QAM 02/10/21 01/24/22 Loratadine 10 mg PO DAILY 02/10/21 01/24/22 Multivit-Min/FA/Lycopen/Lutein 1 each PO DAILY 02/10/21 01/24/22 [Centrum Silver Tablet] Pantoprazole [Protonix] 40 mg PO QAM 02/10/21 01/24/22 Rizatriptan Benzoate [Maxalt] 10 mg PO DIRECTED PRN 02/10/21 01/24/22 Topiramate [Topiramate ER] 100 mg PO DAILY 02/10/21 01/24/22 Zinc 50 mg PO DAILY 02/10/21 01/24/22 Previous Rx's Medication Instructions Recorded Ciprofloxacin HCl [Cipro] 250 mg PO Q12HR 3 Days #6 tab 02/12/21 Ketorolac [Toradol] 10 mg PO Q6HR PRN #15 tab 02/12/21 Allergies Allergy/AdvReac Type Severity Reaction Status Date / Time morphine Allergy Severe Rapid Verified 09/12/22 07:21 Heart Rate Penicillins Allergy Anaphylaxis Verified 09/12/22 07:21 Sulfa (Sulfonamide Allergy Rash/Hives Verified 09/12/22 07:21 Antibiotics) paper tape Allergy Tears skin Uncoded 09/12/22 07:21 Review of Systems ROS Statement: Those systems with pertinent positive or pertinent negative responses have been documented in the HPI. ROS Other: All systems not noted in ROS Statement are negative. Past Medical History Past Medical History: Asthma Additional Past Medical History / Comment(s): chronic pain History of Any Multi-Drug Resistant Organisms: None Reported Past Surgical History: Bariatric Surgery, Joint Replacement, Orthopedic Surgery Past Psychological History: No Psychological Hx Reported Smoking Status: Never smoker Past Alcohol Use History: None Reported Past Drug Use History: None Reported General Exam Limitations: no limitations General appearance: alert, in no apparent distress Head exam: Present: atraumatic, normocephalic, normal inspection Eye exam: Present: normal appearance, PERRL, EOMI. Absent: scleral icterus, conjunctival injection, periorbital swelling ENT exam: Present: normal exam, mucous membranes moist Neck exam: Present: normal inspection. Absent: tenderness, meningismus, lymphadenopathy Respiratory exam: Present: normal lung sounds bilaterally. Absent: respiratory distress, wheezes, rales, rhonchi, stridor Cardiovascular Exam: Present: regular rate, normal rhythm, normal heart sounds. Absent: systolic murmur, diastolic murmur, rubs, gallop, clicks GI/Abdominal exam: Present: soft, normal bowel sounds. Absent: distended, tenderness, guarding, rebound, rigid Extremities exam: Present: normal inspection, full ROM, normal capillary refill. Absent: tenderness, pedal edema, joint swelling, calf tenderness Back exam: Present: CVA tenderness (R) Neurological exam: Present: alert, oriented X3, CN II-XII intact Psychiatric exam: Present: normal affect, normal mood Skin exam: Present: warm, dry, intact, normal color. Absent: rash Course Vital Signs 09/12/22 09/12/22 07:22 09:06 Temperature 98.5 F Pulse Rate 70 70 Respiratory 17 18 Rate Blood Pressure 124/63 124/78 O2 Sat by Pulse 97 99 Oximetry Medical Decision Making - Medical Decision Making Was pt. sent in by a medical professional or institution (, [facility], [facility], urgent care, hospital, or snf...) When possible be specific @ -No Did you speak to anyone other than the patient for history (EMS, parent, family, police, friend...)? What history was obtained from this source @ -No Did you review nursing and triage notes (agree or disagree)? Why? @ -I reviewed and agree with nursing and triage notes Were old charts reviewed (outside hosp., previous admission, EMS record, old EKG, old radiological studies, urgent care reports/EKG's, snf records)? Report findings @ -No old charts were reviewed Differential Diagnosis (chest pain, altered mental status, abdominal pain women, abdominal pain men, vaginal bleeding, weakness, fever, dyspnea, syncope, headache, dizziness, GI bleed, back pain, seizure, CVA, palpatations, mental health, musculoskeletal)? @ -pyelonephritis, kidney stone, shingles, musculoskeletal strain EKG interpreted by me (3pts min.). @ -not done X-rays interpreted by me (1pt min.). @ -None done CT interpreted by me (1pt min.). @ -yes, no stones U/S interpreted by me (1pt. min.). @ -None done What testing was considered but not performed or refused? (CT, X-rays, U/S, labs)? Why? @ -None What meds were considered but not given or refused? Why? @ -None Did you discuss the management of the patient with other professionals (professionals i.e. [facility]JEE[facility] Nguyen, [facility], lab, RT, psych nurse, social worker clinical, prisoner classification interviewer, teacher, aoc director combat operations officer, shelter case manager)? Give summary @ -No Was smoking cessation discussed for >3mins.? @ -No Was critical care preformed (if so, how long)? @ -No Were there social determinants of health that impacted care today? How? (Homelessness, low income, unemployed, alcoholism, drug addiction, transportation, low edu. Level, literacy, decrease access to med. care, assisted, rehab)? @ -No Was there de-escalation of care discussed even if they declined (Discuss DNR or withdrawal of care, Hospice)? DNR status @ -No What co-morbidities impacted this encounter? (DM, HTN, Smoking, COPD, CAD, Cancer, CVA, ARF, Chemo, Hep., AIDS, mental health diagnosis, sleep apnea, morbid obesity)? @ -kidney stones Was patient admitted / discharged? Hospital course, mention meds given and route, prescriptions, significant lab abnormalities, going to OR and other pertinent info. @ -Upon arrival patient was placed into room 20. Thorough history and physical exam performed. Pain is reproducible upon movement. She is agreeable to Toradol administration. Laboratory studies are conducted and reviewed. CT is performed which demonstrates no signs of nephrolithiasis. Patient will be discharged home at this time. Instructed to monitor her symptoms closely. Follow up with her doctor in 2 to 4 days or return for any new or worsening symptoms. Patient was given plan she was discharged in stable condition Undiagnosed new problem with uncertain prognosis? @ -yes Drug Therapy requiring intensive monitoring for toxicity (Heparin, Nitro, Insulin, Cardizem)? @ -No Were any procedures done? @ -No Diagnosis/symptom? @ -acute right flank pain Acute, or Chronic, or Acute on Chronic? @ -acute Uncomplicated (without systemic symptoms) or Complicated (systemic symptoms)? @ -uncomplicated Side effects of treatment? @ -No Exacerbation, Progression, or Severe Exacerbation? @ -No Poses a threat to life or bodily function? How? (Chest pain, [place], [place], pneumonia, PE, COPD, DKA, ARF, appy, cholecystitis, CVA, Diverticulitis, Homicidal, Suicidal, threat to staff... and all critical care pts) @ -No - Lab Data Result diagrams: 09/12/22 07:55 09/12/22 07:55 Lab Results 09/12/22 09/12/22 09/12/22 Range/Units 07:55 07:55 07:55 WBC 4.6 (3.8-10.6) k/uL RBC 4.49 (3.80-5.40) m/uL Hgb 13.4 (11.4-16.0) gm/dL Hct 40.6 (34.0-46.0) % MCV 90.5 (80.0-100.0) fL MCH 29.8 (25.0-35.0) pg MCHC 32.9 (31.0-37.0) g/dL RDW 14.5 (11.5-15.5) % Plt Count 213 (150-450) k/uL MPV 9.7 Neutrophils % 59 % Lymphocytes % 27 % Monocytes % 7 % Eosinophils % 4 % Basophils % 0 % Neutrophils # 2.7 (1.3-7.7) k/uL Lymphocytes # 1.3 (1.0-4.8) k/uL Monocytes # 0.3 (0-1.0) k/uL Eosinophils # 0.2 (0-0.7) k/uL Basophils # 0.0 (0-0.2) k/uL Sodium 137 (137-145) mmol/L Potassium 4.3 (3.5-5.1) mmol/L Chloride 102 (98-107) mmol/L Carbon Dioxide 24 (22-30) mmol/L Anion Gap 11 mmol/L BUN 17 (7-17) mg/dL Creatinine 1.02 (0.52-1.04) mg/dL Est GFR (CKD-EPI)AfAm 67 (>60 ml/min/1.73 sqM) Est GFR (CKD-EPI)NonAf 58 (>60 ml/min/1.73 sqM) Glucose 89 (74-99) mg/dL Calcium 9.0 (8.4-10.2) mg/dL Total Bilirubin 0.8 (0.2-1.3) mg/dL AST 39 H (14-36) U/L ALT 21 (4-34) U/L Alkaline Phosphatase 77 (38-126) U/L Total Protein 7.4 (6.3-8.2) g/dL Albumin 4.5 (3.5-5.0) g/dL Lipase 171 (23-300) U/L Urine Color Yellow Urine Appearance Clear (Clear) Urine pH 6.0 (5.0-8.0) Ur Specific [place] 1.020 (1.001-1.035) Urine Protein Negative (Negative) Urine Glucose (UA) Negative (Negative) Urine Ketones Negative (Negative) Urine Blood Negative (Negative) Urine Nitrite Negative (Negative) Urine Bilirubin Negative (Negative) Urine Urobilinogen 2.0 (<2.0) mg/dL Ur Leukocyte Esterase Trace H (Negative) Urine RBC <1 (0-5) /hpf Urine WBC 1 (0-5) /hpf Ur Squamous Epith Cells 1 (0-4) /hpf Urine Mucus Rare H (None) /hpf Disposition Clinical Impression: Right flank pain Disposition: HOME SELF-CARE Condition: Stable Instructions (If sedation given, give patient instructions): Flank Pain (ED) Additional Instructions: Please follow-up for reevaluation of your pain with your primary care doctor. Return for any new or worsening symptoms Is patient prescribed a controlled substance at d/c from ED?: No Referrals: David Roland III, MD [Primary Care Provider] - 1-2 days Time of Disposition: 08:47
[2022-09-12 08:23] LABS: ALT 21 U/L (4-34); African American GFR (CKD) 67 (>60 ml/min/1.73 sqM); Albumin 4.5 g/dL (3.5-5.0); Anion Gap 11 mmol/L; Blood Urea Nitrogen 17 mg/dL (7-17); Carbon Dioxide 24 mmol/L (22-30); Chloride 102 mmol/L (98-107); Glucose 89 mg/dL (74-99); Lipase 171 U/L (23-300); Non-African American GFR(CKD) 58 (>60 ml/min/1.73 sqM); Sodium 137 mmol/L (137-145); Total Bilirubin 0.8 mg/dL (0.2-1.3); Total Protein 7.4 g/dL (6.3-8.2)
[2022-09-12 08:26] LABS: Appearance,Urine Clear (Clear); Bilirubin,Urine Negative (Negative); Blood,Urine Negative (Negative); Color,Urine Yellow; Glucose,Urine (UA) Negative (Negative); Ketones,Urine Negative (Negative); Leukocyte Esterase,Urine Trace (Negative); Mucus,Urine Rare /hpf; Nitrite,Urine Negative (Negative); Protein,Urine Negative (Negative); RBC,Urine <1 /hpf (0-5); Squamous Epithelial Cell,Urine 1 /hpf (0-4); WBC,Urine 1 /hpf (0-5)
--- NOTE | 2022-09-12 08:27 | CT ---
EXAMINATION TYPE: CT abdomen pelvis wo con DATE OF EXAM: 09/12/2022 COMPARISON: 12/29/2020 HISTORY: Right sided abdominal/flank pain. CT DLP: 1610.4 mGycm Examination of the solid and hollow viscera is limited given the lack of contrast. FINDINGS: LUNG BASES: No evidence for nodule. No evidence for infiltrate. LIVER/GB: The gallbladder is surgically absent No space-occupying hepatic lesion. PANCREAS: No pancreatic mass identified. No inflammatory process seen. SPLEEN: No evidence for splenomegaly. No intrasplenic lesions seen. ADRENALS: No adrenal nodules identified. No evidence for thickening. KIDNEYS: Parapelvic renal cysts noted. No nephrolithiasis. No hydronephrosis. BOWEL: Appendix has a normal appearance. No evidence of bowel obstruction. No inflammatory process. S mall hiatal hernia. Postoperative changes about the stomach. Anastomotic changes about the jejunal lo ops. Lymph nodes: No evidence for adenopathy greater than 1 cm. Abdominal aorta: Atheromatous changes seen. No evidence for aneurysm. Genital organs: No significant abnormality. Other: No significant abnormality. IMPRESSION: NO ACUTE PROCESS IDENTIFIED.
[2022-09-12 08:31] LABS: Potassium 4.3 mmol/L (3.5-5.1)
[2022-09-12 08:32] LABS: AST 39 U/L (14-36); Alkaline Phosphatase 77 U/L (38-126)
[2022-09-12 08:41] LABS: Basophils % (A) 0 %; Eosinophils # (A) 0.2 k/uL (0-0.7); Eosinophils % (A) 4 %; HCT 40.6 % (34.0-46.0); HGB 13.4 gm/dL (11.4-16.0); Lymphocytes # (A) 1.3 k/uL (1.0-4.8); Lymphocytes % (A) 27 %; MCH 29.8 pg (25.0-35.0); MCHC 32.9 g/dL (31.0-37.0); MCV 90.5 fL (80.0-100.0); Mean Platelet Volume 9.7; Monocytes # (A) 0.3 k/uL (0-1.0); Monocytes % (A) 7 %; Neutrophils # (A) 2.7 k/uL (1.3-7.7); Neutrophils % (A) 59 %; Platelet Count 213 k/uL (150-450); RBC 4.49 m/uL (3.80-5.40); RDW 14.5 % (11.5-15.5); WBC 4.6 k/uL (3.8-10.6)
[2022-09-12 09:07] VITALS: BP 124/78; RESP 18
== END 2022-09-12 09:07 | disposition home or self-care (01) ==
LOC: EC 07:20
DX: R10.9 Unspecified abdominal pain (principal); J45.909 Unspecified asthma, uncomplicated; Z79.899 Other long term (current) drug therapy; Z88.0 Allergy status to penicillin; Z88.2 Allergy status to sulfonamides; Z88.5 Allergy status to narcotic agent; Z91.09 Other allergy status, other than to drugs and biological substances
CPT/HCPCS: 36415; 80053; 83690; 85025; 81001; 74176; 99284; 96374; J1885

== ENCOUNTER 2022-10-18 12:57 | Emergency (ER) | payer MEDICARE, OTHER ==
[2022-10-18 13:02] VITALS: RESP 18; TEMP 98.7
[2022-10-18 14:06] LABS: Basophils % (A) 0 %; Eosinophils # (A) 0.1 k/uL (0-0.7); Eosinophils % (A) 1 %; HCT 36.2 % (34.0-46.0); HGB 12.3 gm/dL (11.4-16.0); Lymphocytes % (A) 12 %; MCH 30.2 pg (25.0-35.0); Mean Platelet Volume 8.9; Monocytes # (A) 0.4 k/uL (0-1.0); Monocytes % (A) 5 %; Neutrophils # (A) 7.1 k/uL (1.3-7.7); Neutrophils % (A) 81 %; Platelet Count 149 k/uL (150-450); RBC 4.07 m/uL (3.80-5.40); RDW 13.9 % (11.5-15.5); WBC 8.7 k/uL (3.8-10.6)
--- NOTE | 2022-10-18 14:26 | XR ---
EXAMINATION TYPE: XR wrist complete RT, XR hand complete RT DATE OF EXAM: 10/18/2022 2:08 PM INDICATION: Patient age:Female; 66 years old; Reason for study: s/p carpal tunnel surgery. Infection.; [facility]. COMPARISON: None TECHNIQUE: Right wrist was examined in the Frontal, navicular, lateral, and oblique. Right hand was e valuated in frontal lateral and oblique views. FINDINGS: Soft tissue swelling on the volar aspect of the hand. There is compatible with recent surge ry. No evidence for subcutaneous gas or osseous erosion. No acute osseous pathology, joint dislocatio n, or joint effusion. No evidence of any soft tissue swelling is seen. IMPRESSION: Soft tissue swelling throughout the volar wrist. No evidence for osseous erosion. No subcutaneous gas .
--- NOTE | 2022-10-18 14:32 | ED ---
General Adult HPI - General Chief complaint: Recheck/Abnormal Lab/Rx Stated complaint: Right hand pain Time Seen by Provider: 10/18/22 13:09 Source: patient Mode of arrival: ambulatory Limitations: no limitations - History of Present Illness Initial comments: 66-year-old female presenting to the ED with a chief complaint of surgical site change. Patient states 4 days ago received carpal tunnel surgery. States initially improving well and was able to move fingers with full range of motion without difficulty however last night, states that she started to noticed drainage at the surgical site, and pain and swelling surrounding the surgical site down to the hand. States fingers are now swollen and is having difficulty flexing her fingers. Denies fever. No other complaints. - Related Data Home Medications Medication Instructions Recorded Confirmed Albuterol Sulfate [Proventil Hfa] 1 puff INHALATION Q4-6H PRN 02/10/21 01/24/22 Calcium Citrate/Vitamin D3 1 each PO DAILY 02/10/21 01/24/22 [Citracal + D Maximum Caplet] Cholecalciferol [Vitamin D3 (25 25 mcg PO DAILY 02/10/21 01/24/22 Mcg = 1000 Iu)] Cyanocobalamin (Vitamin B-12) 5,000 mcg PO DAILY 02/10/21 01/24/22 [Vitamin B12] Diclofenac Sodium [Voltaren] 25 mg PO TID 02/10/21 01/24/22 Flovent (Unknown Dose) 1 puff INHALATION DIRECTED PRN 02/10/21 01/24/22 Fluticasone Nasal [place] [Flonase 1 spray EA NOSTRIL DAILY 02/10/21 01/24/22 Nasal [place]] Gabapentin 600 mg PO TID 02/10/21 01/24/22 HYDROcodone/APAP 7.5-325MG [[place] 1 tab PO TID 02/10/21 01/24/22 7.5-325] Hyoscyamine Sulfate [Hyoscyamine 0.125 mg SL DIRECTED PRN 02/10/21 01/24/22 Sulfate SL] Levothyroxine Sodium [Synthroid] 125 mcg PO QAM 02/10/21 01/24/22 Loratadine 10 mg PO DAILY 02/10/21 01/24/22 Multivit-Min/FA/Lycopen/Lutein 1 each PO DAILY 02/10/21 01/24/22 [Centrum Silver Tablet] Pantoprazole [Protonix] 40 mg PO QAM 02/10/21 01/24/22 Rizatriptan Benzoate [Maxalt] 10 mg PO DIRECTED PRN 02/10/21 01/24/22 Topiramate [Topiramate ER] 100 mg PO DAILY 02/10/21 01/24/22 Zinc 50 mg PO DAILY 02/10/21 01/24/22 Previous Rx's Medication Instructions Recorded Ciprofloxacin HCl [Cipro] 250 mg PO Q12HR 3 Days #6 tab 02/12/21 Ketorolac [Toradol] 10 mg PO Q6HR PRN #15 tab 02/12/21 clindamycin HCL 300 mg PO QID 7 Days #28 cap 10/18/22 Allergies Allergy/AdvReac Type Severity Reaction Status Date / Time morphine Allergy Severe Rapid Verified 10/18/22 13:03 Heart Rate acetaminophen [From Percocet] Allergy Unknown Verified 10/18/22 13:03 Influenza Virus Vaccines Allergy Nausea & Verified 10/18/22 13:03 Vomiting & Diarrhea oxycodone [From Percocet] Allergy Unknown Verified 10/18/22 13:03 Penicillins Allergy Anaphylaxis Verified 10/18/22 13:03 Sulfa (Sulfonamide Allergy Rash/Hives Verified 10/18/22 13:03 Antibiotics) paper tape Allergy Tears skin Uncoded 09/12/22 07:21 Review of Systems ROS Statement: Those systems with pertinent positive or pertinent negative responses have been documented in the HPI. ROS Other: All systems not noted in ROS Statement are negative. Past Medical History Past Medical History: Asthma Additional Past Medical History / Comment(s): chronic pain History of Any Multi-Drug Resistant Organisms: None Reported Past Surgical History: Bariatric Surgery, Joint Replacement, Orthopedic Surgery Additional Past Surgical History / Comment(s): CARPAL TUNNEL SURGERY RIGHT WRIST Past Psychological History: No Psychological Hx Reported Smoking Status: Never smoker Past Alcohol Use History: None Reported Past Drug Use History: None Reported General Exam Limitations: no limitations General appearance: alert, in no apparent distress Respiratory exam: Present: normal lung sounds bilaterally Cardiovascular Exam: Present: regular rate, normal rhythm Extremities exam: Present: other (Strength and sensation intact of right hand h owever diffuse swelling of the right hand. Erythema overlying the incision site spreading both distally to the hand and Proximally 2 cm up the forearm past the incision site. ) Neurological exam: Present: alert, oriented X3 Skin exam: Present: warm, dry Course Vital Signs 10/18/22 12:58 Temperature 98.7 F Pulse Rate 78 Respiratory 18 Rate Blood Pressure 131/61 O2 Sat by Pulse 96 Oximetry Medical Decision Making - Medical Decision Making Was pt. sent in by a medical professional or institution (SANJEEV Nguyen, WELDING OPERATOR, urgent care, hospital, or detention...) When possible be specific @ -No Did you speak to anyone other than the patient for history (EMS, parent, family, police, friend...)? What history was obtained from this source @ -No Did you review nursing and triage notes (agree or disagree)? Why? @ -I reviewed and agree with nursing and triage notes Were old charts reviewed (outside hosp., previous admission, EMS record, old EKG, old radiological studies, urgent care reports/EKG's, detention records)? Report findings @ -No old charts were reviewed Differential Diagnosis (chest pain, altered mental status, abdominal pain women, abdominal pain men, vaginal bleeding, weakness, fever, dyspnea, syncope, headache, dizziness, GI bleed, back pain, seizure, CVA, palpatations, mental health, musculoskeletal)? @ -Cellulitis, MRSA, flexor tenosynovitis. This is not meant to be an all- inclusive list. EKG interpreted by me (3pts min.). @ -None X-rays interpreted by me (1pt min.). @ -None done CT interpreted by me (1pt min.). @ -None done U/S interpreted by me (1pt. min.). @ -None done What testing was considered but not performed or refused? (CT, X-rays, U/S, labs )? Why? @ -None What meds were considered but not given or refused? Why? @ -None Did you discuss the management of the patient with other professionals (professionals i.e. SANJEEV Nguyen, WELDING OPERATOR, lab, RT, psych nurse, geriatric social worker, postmaster, teacher, airport operations officer, case supervisor)? Give summary @ -No Was smoking cessation discussed for >3mins.? @ -No Was critical care preformed (if so, how long)? @ -No Were there social determinants of health that impacted care today? How? (Homelessness, low income, unemployed, alcoholism, drug addiction, transportation, low edu. Level, literacy, decrease access to med. care, [facility], rehab)? @ -No Was there de-escalation of care discussed even if they declined (Discuss DNR or withdrawal of care, Hospice)? DNR status @ -No What co-morbidities impacted this encounter? (DM, HTN, Smoking, COPD, CAD, Cancer, CVA, ARF, Chemo, Hep., AIDS, mental health diagnosis, sleep apnea, morbid obesity)? @ -None Was patient admitted / discharged? Hospital course, mention meds given and route, prescriptions, significant lab abnormalities, going to OR and other pertinent info. @ -Discharge. Labs did not indicate an elevation in white blood cell count however CRP elevated at 4.8. Patient afebrile at this time and otherwise vital signs stable. Patient and I both attempted to contact her orthopedic surgeon multiple times however were unable to do so at this time. Patient provided prescription for clindamycin. Advised to contact her hand surgeon as soon as possible in regards to her possible infection and whether or not she should continue taking the antibiotics that we have prescribed. Wound cultures obtained. If positive, will contact patient and adjust treatment as needed. Thoroughly discussed return precautions with patient who verbalizes agreement. Undiagnosed new problem with uncertain prognosis? @ -No Drug Therapy requiring intensive monitoring for toxicity (Heparin, Nitro, Insu ceci, Cardizem)? @ -No Were any procedures done? @ -No Diagnosis/symptom? @ -Postsurgical complication, early cellulitis Acute, or Chronic, or Acute on Chronic? @ -Acute Uncomplicated (without systemic symptoms) or Complicated (systemic symptoms)? @ -Uncomplicated Side effects of treatment? @ -No Exacerbation, Progression, or Severe Exacerbation? @ -No Poses a threat to life or bodily function? How? (Chest pain, [place], [place], pneumonia, PE, COPD, DKA, ARF, appy, cholecystitis, CVA, Diverticulitis, Homicidal, Suicidal, threat to staff... and all critical care pts) @ -No - Lab Data Result diagrams: 10/18/22 13:42 Lab Results 10/18/22 10/18/22 Range/Units 13:42 13:42 WBC 8.7 (3.8-10.6) k/uL RBC 4.07 (3.80-5.40) m/uL Hgb 12.3 (11.4-16.0) gm/dL Hct 36.2 (34.0-46.0) % MCV 89.0 (80.0-100.0) fL MCH 30.2 (25.0-35.0) pg MCHC 34.0 (31.0-37.0) g/dL RDW 13.9 (11.5-15.5) % Plt Count 149 L (150-450) k/uL MPV 8.9 Neutrophils % 81 % Lymphocytes % 12 % Monocytes % 5 % Eosinophils % 1 % Basophils % 0 % Neutrophils # 7.1 (1.3-7.7) k/uL Lymphocytes # 1.0 (1.0-4.8) k/uL Monocytes # 0.4 (0-1.0) k/uL Eosinophils # 0.1 (0-0.7) k/uL Basophils # 0.0 (0-0.2) k/uL C-Reactive Protein 4.8 H (<1.0) mg/dL Disposition Clinical Impression: Cellulitis Disposition: HOME SELF-CARE Condition: Good Instructions (If sedation given, give patient instructions): Cellulitis (ED) Additional Instructions: Please return to the Emergency Department if symptoms worsen or any other concerns. Monitor for signs of worsening infection. Please contact your orthopedic surgeon CHRISTIE. Prescriptions: clindamycin HCL 300 mg PO QID 7 Days #28 cap Is patient prescribed a controlled substance at d/c from ED?: No Referrals: David Roland III, MD [Primary Care Provider] - 1-2 days Time of Disposition: 15:01
[2022-10-18 15:09] LABS: Erythrocyte Sedimentation Rate 28 mm/hr (0-20)
[2022-10-18 15:17] VITALS: BP 128/68; PULSE 73
== END 2022-10-18 15:20 | disposition home or self-care (01) ==
LOC: EC 12:57
DX: L03.113 Cellulitis of right upper limb (principal); J45.909 Unspecified asthma, uncomplicated; Z79.51 Long term (current) use of inhaled steroids; Z88.5 Allergy status to narcotic agent; Z88.0 Allergy status to penicillin; Z91.09 Other allergy status, other than to drugs and biological substances; Z88.2 Allergy status to sulfonamides; Z88.7 Allergy status to serum and vaccine; Z88.8 Allergy status to other drugs, medicaments and biological substances
CPT/HCPCS: 36415; 85025; 85652; 86140; 87070; 87075; 87205; 99283

== ENCOUNTER 2022-10-20 08:14 | Inpatient (IN) | payer MEDICARE, OTHER ==
--- NOTE | 2022-10-20 09:05 | ED ---
General Adult HPI - General Chief complaint: Recheck/Abnormal Lab/Rx Stated complaint: Infection,PO Wrist surgery Time Seen by Provider: 10/20/22 08:42 Source: patient, RN notes reviewed Mode of arrival: ambulatory Limitations: no limitations - History of Present Illness Initial comments: Patient is a pleasant 66-year-old female presenting to the emergency department with concern for right wrist infection. Patient had surgery for carpal tunnel done on October 14 up in [place]. Patient was in the emergency department 2 days ago with some redness and swelling to the area. Patient started on antibiotics. Wound culture done. Patient is having more increased pain and swelling and now purulent drainage. - Related Data Home Medications Medication Instructions Recorded Confirmed Albuterol Sulfate [Proventil Hfa] 1 puff INHALATION Q4-6H PRN 02/10/21 01/24/22 Calcium Citrate/Vitamin D3 1 each PO DAILY 02/10/21 01/24/22 [Citracal + D Maximum Caplet] Cholecalciferol [Vitamin D3 (25 25 mcg PO DAILY 02/10/21 01/24/22 Mcg = 1000 Iu)] Cyanocobalamin (Vitamin B-12) 5,000 mcg PO DAILY 02/10/21 01/24/22 [Vitamin B12] Diclofenac Sodium [Voltaren] 25 mg PO TID 02/10/21 01/24/22 Flovent (Unknown Dose) 1 puff INHALATION DIRECTED PRN 02/10/21 01/24/22 Fluticasone Nasal [place] [Flonase 1 spray EA NOSTRIL DAILY 02/10/21 01/24/22 Nasal [place]] Gabapentin 600 mg PO TID 02/10/21 01/24/22 HYDROcodone/APAP 7.5-325MG [[place] 1 tab PO TID 02/10/21 01/24/22 7.5-325] Hyoscyamine Sulfate [Hyoscyamine 0.125 mg SL DIRECTED PRN 02/10/21 01/24/22 Sulfate SL] Levothyroxine Sodium [Synthroid] 125 mcg PO QAM 02/10/21 01/24/22 Loratadine 10 mg PO DAILY 02/10/21 01/24/22 Multivit-Min/FA/Lycopen/Lutein 1 each PO DAILY 02/10/21 01/24/22 [Centrum Silver Tablet] Pantoprazole [Protonix] 40 mg PO QAM 02/10/21 01/24/22 Rizatriptan Benzoate [Maxalt] 10 mg PO DIRECTED PRN 02/10/21 01/24/22 Topiramate [Topiramate ER] 100 mg PO DAILY 02/10/21 01/24/22 Zinc 50 mg PO DAILY 02/10/21 01/24/22 Previous Rx's Medication Instructions Recorded Ciprofloxacin HCl [Cipro] 250 mg PO Q12HR 3 Days #6 tab 02/12/21 Ketorolac [Toradol] 10 mg PO Q6HR PRN #15 tab 02/12/21 clindamycin HCL 300 mg PO QID 7 Days #28 cap 10/18/22 Allergies Allergy/AdvReac Type Severity Reaction Status Date / Time morphine Allergy Severe Rapid Verified 10/20/22 08:38 Heart Rate acetaminophen [From Percocet] Allergy Unknown Verified 10/20/22 08:38 Influenza Virus Vaccines Allergy Nausea & Verified 10/20/22 08:38 Vomiting & Diarrhea oxycodone [From Percocet] Allergy Unknown Verified 10/20/22 08:38 Penicillins Allergy Anaphylaxis Verified 10/20/22 08:38 Sulfa (Sulfonamide Allergy Rash/Hives Verified 10/20/22 08:38 Antibiotics) paper tape Allergy Tears skin Uncoded 10/20/22 08:38 Review of Systems ROS Statement: Those systems with pertinent positive or pertinent negative responses have been documented in the HPI. ROS Other: All systems not noted in ROS Statement are negative. Constitutional: Denies: fever Eyes: Denies: eye pain ENT: Denies: ear pain Respiratory: Denies: cough Cardiovascular: Denies: chest pain Endocrine: Denies: fatigue Genitourinary: Denies: dysuria Musculoskeletal: Reports: as per HPI Past Medical History Past Medical History: Asthma Additional Past Medical History / Comment(s): chronic pain History of Any Multi-Drug Resistant Organisms: None Reported Past Surgical History: Bariatric Surgery, Joint Replacement, Orthopedic Surgery Additional Past Surgical History / Comment(s): CARPAL TUNNEL SURGERY RIGHT WRIST Past Psychological History: No Psychological Hx Reported Smoking Status: Never smoker Past Alcohol Use History: Occasional Past Drug Use History: None Reported General Exam Limitations: no limitations General appearance: alert, in no apparent distress Head exam: Present: normocephalic Eye exam: Present: normal appearance Respiratory exam: Present: normal lung sounds bilaterally Cardiovascular Exam: Present: regular rate, normal rhythm GI/Abdominal exam: Present: soft. Absent: tenderness Extremities exam: Present: other (Right volar wrist with area of swelling approximately 3 cm with mild opening and purulent discharge. There is erythema extending to the mid forearm) Neurological exam: Present: alert Psychiatric exam: Present: normal affect, normal mood Skin exam: Present: erythema Course Vital Signs 10/20/22 08:33 Temperature 98.6 F Pulse Rate 83 Respiratory 18 Rate Blood Pressure 133/69 O2 Sat by Pulse 97 Oximetry Medical Decision Making - Medical Decision Making Was pt. sent in by a medical professional or institution (, PA, BANK VAULT CLERK, urgent care, hospital, or half-way...) When possible be specific @ -No Did you speak to anyone other than the patient for history (EMS, parent, family, police, friend...)? What history was obtained from this source @ -No Did you review nursing and triage notes (agree or disagree)? Why? @ -I reviewed and agree with nursing and triage notes Were old charts reviewed (outside hosp., previous admission, EMS record, old EKG, old radiological studies, urgent care reports/EKG's, half-way records)? Report findings @ -Reviewed previous wound culture and culture still pending. Gram stain is present Differential Diagnosis (chest pain, altered mental status, abdominal pain women, abdominal pain men, vaginal bleeding, weakness, fever, dyspnea, syncope, headache, dizziness, GI bleed, back pain, seizure, CVA, palpatations, mental health, musculoskeletal)? @ -Differential Fever: Pneumonia, viral URI, endocarditis, myocarditis, pericarditis, otitis, sinusitis, peritonsillar Abscess, retropharyngeal Abscess, epiglottitis, peritonitis, appendicitis, Vera cystitis, diverticulitis, hepatitis, colitis, UTI, PID, TOA, pyelonephritis, prostatitis, epididymitis, meningitis, encephalitis, pulmonary embolism, CVA, thyroid storm, pancreatitis, adrenal crisis, cavernous sinus thrombosis, this is not meant to be an all-inclusive list. EKG interpreted by me (3pts min.). @ -As above X-rays interpreted by me (1pt min.). @ -None done CT interpreted by me (1pt min.). @ -None done U/S interpreted by me (1pt. min.). @ -None done What testing was considered but not performed or refused? (CT, X-rays, U/S, labs)? Why? @ -None What meds were considered but not given or refused? Why? @ -None Did you discuss the management of the patient with other professionals (professionals i.e. , PA, BANK VAULT CLERK, lab, RT, psych nurse, social science teacher, paper cutting machine operator, teacher, upscale security officer, case managers)? Give summary @ -Case was discussed with Dr. Siddiqui, who will admit for Dr. Roland Was smoking cessation discussed for >3mins.? @ -No Was critical care preformed (if so, how long)? @ -No Were there social determinants of health that impacted care today? How? (Homelessness, low income, unemployed, alcoholism, drug addiction, transportation, low edu. Level, literacy, decrease access to med. care, halfway, rehab)? @ -No Was there de-escalation of care discussed even if they declined (Discuss DNR or withdrawal of care, Hospice)? DNR status @ -No What co-morbidities impacted this encounter? (DM, HTN, Smoking, COPD, CAD, Cancer, CVA, ARF, Chemo, Hep., AIDS, mental health diagnosis, sleep apnea, morbid obesity)? @ -None Was patient admitted / discharged? Hospital course, mention meds given and route, prescriptions, significant lab abnormalities, going to OR and other pertinent info. @ -Patient will be admitted for IV antibiotics. Patient will have orthopedics and infectious disease consulted. Admission orders written. Undiagnosed new problem with uncertain prognosis? @ -No Drug Therapy requiring intensive monitoring for toxicity (Heparin, Nitro, Insulin, Cardizem)? @ -No Were any procedures done? @ -No Diagnosis/symptom? @ -Cellulitis right wrist Acute, or Chronic, or Acute on Chronic? @ -Acute Uncomplicated (without systemic symptoms) or Complicated (systemic symptoms)? @ -default Side effects of treatment? @ -No Exacerbation, Progression, or Severe Exacerbation? @ -No Poses a threat to life or bodily function? How? (Chest pain, [place], [place], pneumonia, PE, COPD, DKA, ARF, appy, cholecystitis, CVA, Diverticulitis, Homicidal, Suicidal, threat to staff... and all critical care pts) @ -No - Lab Data Result diagrams: 10/20/22 08:56 10/20/22 08:56 Lab Results 10/20/22 10/20/22 10/20/22 Range/Units 08:56 08:56 08:56 WBC 6.1 (3.8-10.6) k/uL RBC 4.28 (3.80-5.40) m/uL Hgb 12.6 (11.4-16.0) gm/dL Hct 38.3 (34.0-46.0) % MCV 89.3 (80.0-100.0) fL MCH 29.4 (25.0-35.0) pg MCHC 33.0 (31.0-37.0) g/dL RDW 13.8 (11.5-15.5) % Plt Count 188 (150-450) k/uL MPV 9.1 Neutrophils % 74 % Lymphocytes % 17 % Monocytes % 5 % Eosinophils % 3 % Basophils % 0 % Neutrophils # 4.5 (1.3-7.7) k/uL Lymphocytes # 1.0 (1.0-4.8) k/uL Monocytes # 0.3 (0-1.0) k/uL Eosinophils # 0.2 (0-0.7) k/uL Basophils # 0.0 (0-0.2) k/uL PT 9.4 (9.0-12.0) sec INR 0.9 (<1.2) APTT 20.3 L (22.0-30.0) sec Sodium 138 (137-145) mmol/L Potassium 4.8 (3.5-5.1) mmol/L Chloride 104 (98-107) mmol/L Carbon Dioxide 26 (22-30) mmol/L Anion Gap 8 mmol/L BUN 15 (7-17) mg/dL Creatinine 0.65 (0.52-1.04) mg/dL Est GFR (CKD-EPI)AfAm >90 (>60 ml/min/1.73 sqM) Est GFR (CKD-EPI)NonAf >90 (>60 ml/min/1.73 sqM) Glucose 84 (74-99) mg/dL Plasma Lactic Acid [place] (0.7-2.0) mmol/L Calcium 8.7 (8.4-10.2) mg/dL Total Bilirubin 0.7 (0.2-1.3) mg/dL AST 22 (14-36) U/L ALT 17 (4-34) U/L Alkaline Phosphatase 81 (38-126) U/L Total Protein 6.8 (6.3-8.2) g/dL Albumin 3.9 (3.5-5.0) g/dL 10/20/22 Range/Units 08:56 WBC (3.8-10.6) k/uL RBC (3.80-5.40) m/uL Hgb (11.4-16.0) gm/dL Hct (34.0-46.0) % MCV (80.0-100.0) fL MCH (25.0-35.0) pg MCHC (31.0-37.0) g/dL RDW (11.5-15.5) % Plt Count (150-450) k/uL MPV Neutrophils % % Lymphocytes % % Monocytes % % Eosinophils % % Basophils % % Neutrophils # (1.3-7.7) k/uL Lymphocytes # (1.0-4.8) k/uL Monocytes # (0-1.0) k/uL Eosinophils # (0-0.7) k/uL Basophils # (0-0.2) k/uL PT (9.0-12.0) sec INR (<1.2) APTT (22.0-30.0) sec Sodium (137-145) mmol/L Potassium (3.5-5.1) mmol/L Chloride (98-107) mmol/L Carbon Dioxide (22-30) mmol/L Anion Gap mmol/L BUN (7-17) mg/dL Creatinine (0.52-1.04) mg/dL Est GFR (CKD-EPI)AfAm (>60 ml/min/1.73 sqM) Est GFR (CKD-EPI)NonAf (>60 ml/min/1.73 sqM) Glucose (74-99) mg/dL Plasma Lactic Acid [place] 1.4 (0.7-2.0) mmol/L Calcium (8.4-10.2) mg/dL Total Bilirubin (0.2-1.3) mg/dL AST (14-36) U/L ALT (4-34) U/L Alkaline Phosphatase (38-126) U/L Total Protein (6.3-8.2) g/dL Albumin (3.5-5.0) g/dL Disposition Clinical Impression: Cellulitis Disposition: ADMITTED IP TO THIS HOSP Is patient prescribed a controlled substance at d/c from ED?: No Referrals: David Roland III, MD [Primary Care Provider] - 1-2 days Time of Disposition: 09:36
[2022-10-20 09:06] LABS: Basophils % (A) 0 %; Eosinophils # (A) 0.2 k/uL (0-0.7); Eosinophils % (A) 3 %; HCT 38.3 % (34.0-46.0); HGB 12.6 gm/dL (11.4-16.0); Lymphocytes % (A) 17 %; MCH 29.4 pg (25.0-35.0); MCV 89.3 fL (80.0-100.0); Mean Platelet Volume 9.1; Monocytes # (A) 0.3 k/uL (0-1.0); Monocytes % (A) 5 %; Neutrophils # (A) 4.5 k/uL (1.3-7.7); Neutrophils % (A) 74 %; Platelet Count 188 k/uL (150-450); RBC 4.28 m/uL (3.80-5.40); RDW 13.8 % (11.5-15.5); WBC 6.1 k/uL (3.8-10.6)
[2022-10-20 09:19] LABS: ALT 17 U/L (4-34); AST 22 U/L (14-36); African American GFR (CKD) >90 (>60 ml/min/1.73 sqM); Albumin 3.9 g/dL (3.5-5.0); Alkaline Phosphatase 81 U/L (38-126); Anion Gap 8 mmol/L; Blood Urea Nitrogen 15 mg/dL (7-17); Calcium 8.7 mg/dL (8.4-10.2); Carbon Dioxide 26 mmol/L (22-30); Chloride 104 mmol/L (98-107); Glucose 84 mg/dL (74-99); Non-African American GFR(CKD) >90 (>60 ml/min/1.73 sqM); Potassium 4.8 mmol/L (3.5-5.1); Sodium 138 mmol/L (137-145); Total Bilirubin 0.7 mg/dL (0.2-1.3); Total Protein 6.8 g/dL (6.3-8.2)
[2022-10-20 09:22] LABS: INR 0.9 (<1.2); Prothrombin Time 9.4 sec (9.0-12.0)
[2022-10-20 09:23] LABS: Partial Thromboplastin Time 20.3 sec (22.0-30.0)
[2022-10-20] MEDS ORDERED: ACETAMINOPHEN TAB 325 MG TAB PO PRN (09:40)
[2022-10-20] MEDS ORDERED: NALOXONE 0.4 MG/ML 1 ML VIAL IV PRN (09:40)
[2022-10-20] MEDS ORDERED: LEVOFLOXACIN 750MG-D5W PMX 750 MG in DEXTROSE/WATER 1 150ML.BAG IVPB SCH (10:00)
[2022-10-20] MEDS: SODIUM CHLORIDE 0.9% 1,000 ML IV SCH (10:49)
[2022-10-20] MEDS: traMADol 50 MG TAB PO PRN ×2 (11:49→20:59)
[2022-10-20] MEDS ORDERED: VANCOMYCIN IV PER PHARMACY 1 EACH MISC MISCELLANE PRN (12:45)
--- NOTE | 2022-10-20 13:14 | P.CNOR ---
History of Present Illness - HPI Consult date: 10/20/22 Requesting physician: Mukund Rivera Consult reason: other (cellulitis) History of present illness: Patient is a 66-year-old female who presented to the emergency department this morning due to concern for infection in the right wrist. Patient did have endoscopic carpal tunnel surgery performed at the [facility] orthopedics in [place] by a Dr. Fernando on October 14. Patient did present to the emergency department at [facility] on Monday with the same concern, however was given antibiotics and sent home. Patient says over the past couple days the swelling and erythema has spread to her hand and upper arm little bit. Patient says she woke up this morning at 3 AM with some drainage from her incision. Patient denies any fever/chills. Patient states over the past day or so it has become somewhat difficult to fully move her fingers. Patient denies any other changes at this time. Patient denies numbness/tingling. Patient denies chest pain, fever, shortness breath, nausea, vomiting, change in vision, loss of bowel/bladder control. Past Medical History Past Medical History: Asthma Additional Past Medical History / Comment(s): chronic pain History of Any Multi-Drug Resistant Organisms: None Reported Past Surgical History: Bariatric Surgery, Joint Replacement, Orthopedic Surgery Additional Past Surgical History / Comment(s): CARPAL TUNNEL SURGERY RIGHT WRIST Past Psychological History: No Psychological Hx Reported Smoking Status: Never smoker Past Alcohol Use History: Occasional Past Drug Use History: None Reported Medications and Allergies Home Medications Medication Instructions Recorded Confirmed Type Albuterol Sulfate [Proventil Hfa] 1 puff INHALATION Q4-6H PRN 02/10/21 01/24/22 History Calcium Citrate/Vitamin D3 1 each PO DAILY 02/10/21 01/24/22 History [Citracal + D Maximum Caplet] Cholecalciferol [Vitamin D3 (25 25 mcg PO DAILY 02/10/21 01/24/22 History Mcg = 1000 Iu)] Diclofenac Sodium [Voltaren] 25 mg PO TID 02/10/21 01/24/22 History Fluticasone Nasal [place] [Flonase 1 spray EA NOSTRIL DAILY 02/10/21 01/24/22 History Nasal [place]] Gabapentin 600 mg PO TID 02/10/21 01/24/22 History Hyoscyamine Sulfate [Hyoscyamine 0.125 mg SL DIRECTED PRN 02/10/21 01/24/22 History Sulfate SL] Levothyroxine Sodium [Synthroid] 125 mcg PO QAM 02/10/21 01/24/22 History Loratadine 10 mg PO DAILY 02/10/21 01/24/22 History Pantoprazole [Protonix] 40 mg PO QAM 02/10/21 01/24/22 History Rizatriptan Benzoate [Maxalt] 10 mg PO DIRECTED PRN 02/10/21 01/24/22 History Zinc 50 mg PO DAILY 02/10/21 01/24/22 History clindamycin HCL 300 mg PO QID 7 Days #28 cap 10/18/22 Rx Bariatric Fusion Multivitamin 1 tab PO DAILY 10/20/22 10/20/22 History Flovent (Unknown Strength) 1 dose INHALATION DIRECTED 10/20/22 10/20/22 History Galcanezumab-Gnlm [Emgality Pen] 120 mg SQ DIRECTED 10/20/22 10/20/22 History HYDROcodone/APAP 10-325MG [[place] 1 tab PO Q6H PRN 10/20/22 10/20/22 History 10-325] Phentermine HCl [Adipex-P] 37.5 mg PO DAILY 10/20/22 10/20/22 History Allergies Allergy/AdvReac Type Severity Reaction Status Date / Time morphine Allergy Severe Rapid Verified 10/20/22 12:35 Heart Rate acetaminophen [From Percocet] Allergy Unknown Verified 10/20/22 12:35 Influenza Virus Vaccines Allergy Nausea & Verified 10/20/22 12:35 Vomiting & Diarrhea oxycodone [From Percocet] Allergy Unknown Verified 10/20/22 12:35 Penicillins Allergy Anaphylaxis Verified 10/20/22 12:35 Sulfa (Sulfonamide Allergy Rash/Hives Verified 10/20/22 12:35 Antibiotics) paper tape Allergy Tears skin Uncoded 10/20/22 08:38 Physical Examination Inspection: Endoscopic incision present over the right wrist. There is purulent discharge from the incision. Erythema present on the volar aspect of the wrist and spreading proximally midway up the forearm. There is also some swelling in the wrist as well as the hand. Sensation: Equal, symmetric, bilaterally intact throughout the upper extremities. Palpation: Moderate tenderness to palpation diffusely throughout the right wrist Range of motion: Patient has full range of motion in right elbow in flexion/extension and right shoulder in forward elevation, abduction, external and internal rotation. Patient does have limited range of motion in the right wrist in flexion/extension secondary to pain in the right wrist. Patient is able to fully extend digits 2 through 5 in the right hand. Patient does have some limb range of motion in the MCPJ of 2 through 5 secondary to swelling and referred pain to the right wrist. Motor: 4+/5 in resisted right elbow flexion/extension. 4-/5 in resisted in right wrist flexion/extension Neurovascular status: Radial pulses intact, 2+ bilaterally. Cap refill under 3 seconds in his upper extremities. Special tests: Negative Homans bilaterally. Results - Labs Labs: Abnormal Lab Results - Last 24 Hours (Table) 10/20/22 Range/Units 08:56 APTT 20.3 L (22.0-30.0) sec H & H 10/20/22 Range/Units 08:56 Hgb 12.6 (11.4-16.0) gm/dL Hct 38.3 (34.0-46.0) % Coagulation 10/20/22 Range/Units 08:56 INR 0.9 (<1.2) Result Diagrams: 10/20/22 08:56 10/20/22 08:56 Assessment and Plan Assessment: 1. Right wrist infection; cellulitis right wrist; history of recent endoscopic carpal tunnel surgery Plan: 1. Right wrist infection; cellulitis right wrist; history of recent endoscopic carpal tunnel surgery - patient seen at bedside this afternoon. I did discuss the case with my attending, Dr. Encarnacion. At this time we recommend soaks 3x per day today and I&D right wrist tmrw afternoon in OR. Surgery has been boarded for tmrw. Medicine and ID following with antibiotics. Pain medication as needed. weightbearing as tolerated. Patient may perform gentle ROM exercises. White blood count is 6.1. We have ordered ESR and CRP for further evaluation. We'll continue to follow patient during her stay in hospital. 2. Appreciate ID and medical management 3. Pain management -tylenol; tramadol 4. GI prophylaxis recs 5. DVT prophylaxis recs 6. PT/OT - weightbearing as tolerated 7. Encourage incentive spirometer use 8. Appreciate consult Time with Patient: Less than 30
--- NOTE | 2022-10-20 13:35 | P.HPIM ---
History of Present Illness H&P Date: 10/20/22 History of present illness; patient is a 66-year-old lady with past medical his tory significant for hypothyroidism, recent carpal tunnel surgery who presented to The ER because of right wrist pain. Patient recently underwent carpal surgery in [place]. Patient was evaluated 2 days ago in the ER because of right wrist pain, at that time was found to have redness, was discharged on oral antibiotics. Patient continued to have worsening pain and redness. Denies any fever or chills at home. Because of the symptoms, patient came to the ER Initial lab work done in the ER showed WBC 6.1, hemoglobin 12.6, platelet count 188, sodium 1:30, potassium 4.8, BUN 15, creatinine 0.65, alk phos 81, patient admitted to medicine service REVIEW OF SYSTEMS: CONSTITUTIONAL: As in HPI HEENT: No recent visual problems or hearing problems. Denied any sore throat. CARDIOVASCULAR: No chest pain, orthopnea, PND, no palpitations, no syncope. PULMONARY: No shortness of breath, no cough, no hemoptysis. GASTROINTESTINAL: No diarrhea, no nausea, no vomiting, no abdominal pain. NEUROLOGICAL: No headaches, no weakness, no numbness. HEMATOLOGICAL: Denies any bleeding or petechiae. GENITOURINARY: Denies any burning micturition, frequency, or urgency. MUSCULOSKELETAL/RHEUMATOLOGICAL: As mentioned in HPI ENDOCRINE: Denies any polyuria or polydipsia. The rest of the 14-point review of systems is negative. PHYSICAL EXAMINATION: GENERAL: The patient is alert and oriented x3, not in any acute distress. Well developed, well nourished. HEENT: Pupils are round and equally reacting to light. EOMI. No scleral icterus. No conjunctival pallor. Normocephalic, atraumatic. No pharyngeal erythema. No thyromegaly. CARDIOVASCULAR: S1 and S2 present. No murmurs, rubs, or gallops. PULMONARY: Chest is clear to auscultation, no wheezing or crackles. ABDOMEN: Soft, nontender, nondistended, normoactive bowel sounds. No palpable organomegaly. MUSCULOSKELETAL: No joint swelling or deformity. EXTREMITIES: No cyanosis, clubbing, or pedal edema. NEUROLOGICAL: Gross neurological examination did not reveal any focal deficits. SKIN: No rashes. Assessment and plan Right wrist cellulitis Hypothyroidism Monitor vital signs Monitor CBC Monitor CMP Follow-up blood cultures Follow-up on wound cultures Continue IV vancomycin Consult ID Consult orthopedic Labs and medication were reviewed.. Continue same treatment. Continue with symptomatic treatment. Resume home medication. Monitor labs and vitals. DVT and GI prophylaxis. Further recommendations as per clinical course of the patient Dictation was produced using [employer] dictation software. please excuse any grammatical, word or spelling errors. Past Medical History Past Medical History: Asthma Additional Past Medical History / Comment(s): chronic pain History of Any Multi-Drug Resistant Organisms: None Reported Past Surgical History: Bariatric Surgery, Joint Replacement, Orthopedic Surgery Additional Past Surgical History / Comment(s): CARPAL TUNNEL SURGERY RIGHT WRIST Past Psychological History: No Psychological Hx Reported Smoking Status: Never smoker Past Alcohol Use History: Occasional Past Drug Use History: None Reported Medications and Allergies Home Medications Medication Instructions Recorded Confirmed Type Albuterol Sulfate [Proventil Hfa] 2 puff INHALATION RT-Q4H PRN 02/10/21 10/20/22 History Calcium Citrate/Vitamin D3 1 tab PO DAILY 02/10/21 10/20/22 History [Citracal + D Maximum Caplet] Cholecalciferol [Vitamin D3 (25 25 mcg PO DAILY 02/10/21 10/20/22 History Mcg = 1000 Iu)] Diclofenac Sodium [Voltaren] 25 mg PO DIRECTED PRN 02/10/21 10/20/22 History Fluticasone Nasal [place] [Flonase 1 spray EA NOSTRIL DAILY 02/10/21 10/20/22 History Nasal [place]] Gabapentin 600 mg PO DIRECTED 02/10/21 10/20/22 History Hyoscyamine Sulfate [Hyoscyamine 0.125 mg SL DIRECTED PRN 02/10/21 10/20/22 History Sulfate SL] Levothyroxine Sodium [Synthroid] 125 mcg PO DIRECTED 02/10/21 10/20/22 History Loratadine 10 mg PO DAILY 02/10/21 10/20/22 History Pantoprazole [Protonix] 40 mg PO DIRECTED 02/10/21 10/20/22 History Rizatriptan Benzoate [Maxalt] 10 mg PO DIRECTED PRN 02/10/21 10/20/22 History Zinc 50 mg PO DAILY 02/10/21 10/20/22 History clindamycin HCL 300 mg PO QID 7 Days #28 cap 10/18/22 10/20/22 Rx Bariatric Fusion Multivitamin 1 tab PO DAILY 10/20/22 10/20/22 History Flovent (Unknown Strength) 1 dose INHALATION DIRECTED 10/20/22 10/20/22 History Galcanezumab-Gnlm [Emgality Pen] 120 mg SQ DIRECTED 10/20/22 10/20/22 History HYDROcodone/APAP 10-325MG [[place] 1 tab PO Q6H PRN 10/20/22 10/20/22 History 10-325] Phentermine HCl [Adipex-P] 37.5 mg PO DAILY 10/20/22 10/20/22 History Allergies Allergy/AdvReac Type Severity Reaction Status Date / Time morphine Allergy Severe Rapid Verified 10/20/22 12:35 Heart Rate acetaminophen [From Percocet] Allergy Unknown Verified 10/20/22 12:35 Influenza Virus Vaccines Allergy Nausea & Verified 10/20/22 12:35 Vomiting & Diarrhea oxycodone [From Percocet] Allergy Unknown Verified 10/20/22 12:35 Penicillins Allergy Anaphylaxis Verified 10/20/22 12:35 Sulfa (Sulfonamide Allergy Rash/Hives Verified 10/20/22 12:35 Antibiotics) paper tape Allergy Tears skin Uncoded 10/20/22 08:38 Physical Exam Vitals: Vital Signs Temp Pulse Resp BP Pulse Ox 10/20/22 08:33 98.6 F 83 18 133/69 97 Intake and Output 10/19/22 10/20/22 10/20/22 22:59 06:59 14:59 Other: Weight 118.841 kg Results CBC & Chem 7: 10/20/22 08:56 10/20/22 08:56 Labs: Abnormal Lab Results - Last 24 Hours (Table) 10/20/22 Range/Units 08:56 APTT 20.3 L (22.0-30.0) sec
[2022-10-20] MEDS ORDERED: VANCOMYCIN 2,000 MG in SODIUM CHLORIDE 0.9% 500 ML 500 ML IVPB SCH (14:00)
[2022-10-20] MEDS: GABAPENTIN 300 MG CAP PO SCH ×2 (16:24→21:00)
--- NOTE | 2022-10-20 21:52 | P.CONS ---
History of Present Illness - Reason for Consult Consult date: 10/20/22 - History of Present Illness Patient is a 66-year-old female with a past medical history significant for hypothyroidism patient recently did have a right carpal tunnel surgery done about a week ago by an orthopedic surgeon in [place] patient subsequently developing pain swelling redness at the right wrist area where the patient was evaluated at [facility] patient was discharged home on oral clindamycin 300 mg 3 times a day however the patient now presenting back to the hospital worsening pain swelling redness over the last 2 days patient describes the pain to be more of a sharp in nature intensity is almost under 10 with no radiation with associated swelling and redness at this time minimal pu rulent drainage with the same to the patient was reevaluated on presentation to the hospital patient was afebrile and no fever have been recorded subsequently patient did have a normal white count kidney function was normal CRP is 5.9 blood cultures obtained pending local cultures obtained which are currently pending patient was started on Levaquin because of her multiple antibiotic allergies infectious disease was consulted for further management of antibiotics Past Medical History Past Medical History: Asthma Additional Past Medical History / Comment(s): chronic pain History of Any Multi-Drug Resistant Organisms: None Reported Past Surgical History: Bariatric Surgery, Joint Replacement, Orthopedic Surgery Additional Past Surgical History / Comment(s): CARPAL TUNNEL SURGERY RIGHT WRIST Past Psychological History: No Psychological Hx Reported Smoking Status: Never smoker Past Alcohol Use History: Occasional Past Drug Use History: None Reported Medications and Allergies Home Medications Medication Instructions Recorded Confirmed Type Albuterol Sulfate [Proventil Hfa] 2 puff INHALATION RT-Q4H PRN 02/10/21 10/20/22 History Calcium Citrate/Vitamin D3 1 tab PO DAILY 02/10/21 10/20/22 History [Citracal + D Maximum Caplet] Cholecalciferol [Vitamin D3 (25 25 mcg PO DAILY 02/10/21 10/20/22 History Mcg = 1000 Iu)] Diclofenac Sodium [Voltaren] 25 mg PO DIRECTED PRN 02/10/21 10/20/22 History Fluticasone Nasal [place] [Flonase 1 spray EA NOSTRIL DAILY 02/10/21 10/20/22 History Nasal [place]] Gabapentin 600 mg PO DIRECTED 02/10/21 10/20/22 History Hyoscyamine Sulfate [Hyoscyamine 0.125 mg SL DIRECTED PRN 02/10/21 10/20/22 History Sulfate SL] Levothyroxine Sodium [Synthroid] 125 mcg PO DIRECTED 02/10/21 10/20/22 History Loratadine 10 mg PO DAILY 02/10/21 10/20/22 History Pantoprazole [Protonix] 40 mg PO DIRECTED 02/10/21 10/20/22 History Rizatriptan Benzoate [Maxalt] 10 mg PO DIRECTED PRN 02/10/21 10/20/22 History Zinc 50 mg PO DAILY 02/10/21 10/20/22 History clindamycin HCL 300 mg PO QID 7 Days #28 cap 10/18/22 10/20/22 Rx Bariatric Fusion Multivitamin 1 tab PO DAILY 10/20/22 10/20/22 History Flovent (Unknown Strength) 1 dose INHALATION DIRECTED 10/20/22 10/20/22 History Galcanezumab-Gnlm [Emgality Pen] 120 mg SQ DIRECTED 10/20/22 10/20/22 History HYDROcodone/APAP 10-325MG [[place] 1 tab PO Q6H PRN 10/20/22 10/20/22 History 10-325] Phentermine HCl [Adipex-P] 37.5 mg PO DAILY 10/20/22 10/20/22 History Allergies Allergy/AdvReac Type Severity Reaction Status Date / Time morphine Allergy Severe Rapid Verified 10/20/22 12:35 Heart Rate acetaminophen [From Percocet] Allergy Unknown Verified 10/20/22 12:35 Influenza Virus Vaccines Allergy Nausea & Verified 10/20/22 12:35 Vomiting & Diarrhea oxycodone [From Percocet] Allergy Unknown Verified 10/20/22 12:35 Penicillins Allergy Anaphylaxis Verified 10/20/22 12:35 Sulfa (Sulfonamide Allergy Rash/Hives Verified 10/20/22 12:35 Antibiotics) paper tape Allergy Tears skin Uncoded 10/20/22 08:38 Physical Exam Vitals: Vital Signs Temp Pulse Resp BP Pulse Ox 10/20/22 08:33 98.6 F 83 18 133/69 97 Intake and Output 10/19/22 10/20/22 10/20/22 22:59 06:59 14:59 Other: Weight 118.841 kg Results CBC & Chem 7: 10/20/22 08:56 08/10/23 08:56 Labs: Abnormal Lab Results - Last 24 Hours (Table) 10/20/22 Range/Units 08:56 APTT 20.3 L (22.0-30.0) sec Assessment and Plan Plan: 1patient presented to hospital with the right wrist surgical site infection in this patient who recently did have a carpal tunnel surgery now with evidence of small abscess at the surgical site and cellulitis we will need to cover for the resistant gram-positive to be the likely pathogen such as MRSA failing outpatient oral clindamycin therapy. 2patient with multiple antibiotic allergies that would limit the number of antibiotics safe to use. 3discontinue clindamycin. 4vancomycin pharmacy to dose with a target trough of 15 while watching kidney function and Vanco trough closely. 5await Ortho evaluation for possible I&D and deep culture. We will follow on clinical condition and cultures to further adjust medication if needed Thank you for this consultation we will follow the patient along with you Dictation was produced using [email or web address] dictation software. please excuse any grammatical, word or spelling errors.
[2022-10-21] MEDS: SODIUM CHLORIDE 0.9% 1,000 ML IV SCH ×2 (05:38→16:32)
[2022-10-21] MEDS: LEVOTHYROXINE 125 MCG TAB PO SCH (06:21)
[2022-10-21 07:46] LABS: African American GFR (CKD) >90 (>60 ml/min/1.73 sqM); Non-African American GFR(CKD) >90 (>60 ml/min/1.73 sqM)
[2022-10-21] MEDS: traMADol 50 MG TAB PO PRN ×3 (08:32→21:26)
[2022-10-21] MEDS: GABAPENTIN 300 MG CAP PO SCH ×3 (08:32→21:25)
--- NOTE | 2022-10-21 08:51 | P.PN ---
Subjective Progress Note Date: 10/21/22 Patient was seen and examined at bedside this morning. She notes improvement in her symptoms and the redness in the forearm and palm has continued to improve. She is now able to make a full fist. She started soaks overnight and has noticed improvement in the appearance of the wound. She denies any numbness or tingling. Objective - Vital Signs Vital signs: Vital Signs Temp 98.4 F 10/21/22 07:41 Pulse 69 10/21/22 07:41 Resp 21 10/21/22 07:41 BP 128/73 10/21/22 07:41 Pulse Ox 99 10/21/22 07:41 FiO2 Intake & Output 10/20/22 10/21/22 10/21/22 18:59 06:59 18:59 Intake Total 1025 Balance 1025 Weight 118.841 kg Intake: Intake, IV Titration 1025 Amount Sodium Chloride 0.9% 1, 525 000 ml @ 75 mls/hr IV . [id number] LOUIE Rx#:[id number] Vancomycin 2,000 mg In 500 Sodium Chloride 0.9% 500 ml 500 ml @ 167 mls/hr IVPB Q16H LOUIE Rx#: [id number] Other: # Voids 2 - Exam RUE: AIN/PIN/Radial/Ulnar/Median motor intact. Radial/Ulnar/Median SILT. 2+/4 Radial/Ulnar pulses palpated. Open endoscopic incision with improved erythema around incision. NTTP along flexor tendon sheaths of digits. Able to make a full fist without pain. No fusiform swelling of any digits. No pain with deep palpation of volar forearm. No gross purulence able to be expressed with milky maneuver over volar forearm or palm. - Labs CBC & Chem 7: 10/20/22 08:56 10/21/22 07:14 Labs: Abnormal Lab Results - Last 24 Hours (Table) 10/20/22 10/20/22 10/20/22 Range/Units 08:56 08:56 08:56 ESR 52 H (0-20) mm/hr APTT 20.3 L (22.0-30.0) sec C-Reactive Protein 5.9 H (<1.0) mg/dL Microbiology - Last 24 Hours (Table) 10/20/22 08:56 Gram Stain - Preliminary Wrist - Right Assessment and Plan Assessment: 1.) Right superficial wound infection/dehiscence s/p endoscopic carpal tunnel release in [place], [place] vs delayed allergic reaction to skin adhesive around incision. Plan: She's had significant improvement over the last 24 hours and erythema in the volar forearm and palm is continuing to progress. We discussed she has signs and symptoms of a superficial bina-incisional infection with wound dehiscence versus a delayed type IV hypersensitivity reaction skin adhesive. She has no signs of deep space infection in the palm or volar forearm and is continuing to improve. She is stable from orthopedic standpoint for discharge home on oral antibiotics for 7 days and close follow-up with her hand surgeon in [place] which she states she has a follow-up appointment on 10/24/22. -Kevin Encarnacion DO Orthopedic Hand Surgery
[2022-10-21] MEDS: VANCOMYCIN 2,000 MG in SODIUM CHLORIDE 0.9% 500 ML 500 ML IVPB SCH (12:48)
[2022-10-21 13:11] LABS: Basophils # (A) 0.01 X 10*3/uL (0.00-0.10); Basophils % (A) 0.3 %; Eosinophils # (A) 0.11 X 10*3/uL (0.04-0.35); Eosinophils % (A) 2.9 %; HCT 39.4 % (37.2-46.3); HGB 12.6 d/dL (12.0-15.0); Lymphocytes # (A) 1.08 X 10*3/uL (0.90-5.00); Lymphocytes % (A) 28.3 %; MCH 28.8 pg (27.0-32.0); MCV 90.2 FL (80.0-97.0); Mean Platelet Volume 12.2 FL (9.5-12.2); Monocytes # (A) 0.26 X 10*3/uL (0.20-1.00); Monocytes % (A) 6.8 %; NRBC Per 100 WBC 0 X 10*3/uL (0.00-0.01); Neutrophils # (A) 2.35 X 10*3/uL (1.80-7.70); Neutrophils % (A) 61.4 %; Platelet Count 227 X 10*3/uL (140-440); RBC 4.37 X 10*6/uL (4.10-5.20); RDW 13.2 % (11.5-14.5); WBC 3.82 X 10*3/uL (4.50-10.00)
[2022-10-21] MEDS ORDERED: ALBUTEROL NEBULIZED 2.5 MG/3 ML INHALATION PRN (14:37)
--- NOTE | 2022-10-21 14:42 | P.PN ---
Subjective Progress Note Date: 10/21/22 patient is a 66-year-old lady with past medical history significant for hypothyroidism, recent carpal tunnel surgery who presented to The ER because of right wrist pain. Patient recently underwent carpal surgery in [facility]. Patient was evaluated 2 days ago in the ER because of right wrist pain, at that time was found to have redness, was discharged on oral antibiotics. Patient con tinued to have worsening pain and redness. Denies any fever or chills at home. Because of the symptoms, patient came to the ER Initial lab work done in the ER showed WBC 6.1, hemoglobin 12.6, platelet count 188, sodium 1:30, potassium 4.8, BUN 15, creatinine 0.65, alk phos 81, patient admitted to medicine service 10/21. Patient seen and examined. Erythema of right wrist has improved. Patient states pain is also improved. REVIEW OF SYSTEMS: CONSTITUTIONAL: No fever, no malaise,. CARDIOVASCULAR: No chest pain, no palpitations, no syncope. PULMONARY: No shortness of breath, no cough, GASTROINTESTINAL: No diarrhea, no nausea, no vomiting, no abdominal pain. NEUROLOGICAL: No headaches, no weakness, PHYSICAL EXAMINATION: GENERAL: The patient is alert and oriented x3, not in any acute distress. Well developed, well nourished. HEENT: Pupils are round and equally reacting to light. EOMI. No scleral icterus. No conjunctival pallor. Normocephalic, atraumatic. No pharyngeal erythema. No thyromegaly. CARDIOVASCULAR: S1 and S2 present. No murmurs, rubs, or gallops. PULMONARY: Chest is clear to auscultation, no wheezing or crackles. ABDOMEN: Soft, nontender, nondistended, normoactive bowel sounds. No palpable organomegaly. MUSCULOSKELETAL: Right wrist erythema improved EXTREMITIES: No cyanosis, clubbing, or pedal edema. NEUROLOGICAL: Gross neurological examination did not reveal any focal deficits. SKIN: No rashes. Assessment and plan Right wrist cellulitis Hypothyroidism Monitor vital signs Monitor CBC Monitor CMP Follow-up on wound cultures Follow-up on blood cultures DC fluids Continue vancomycin Monitor vancomycin trough. Follow-up in ID recommendations Orthopedics don't recommend any surgical intervention at this time Labs and medication were reviewed.. Continue same treatment. Continue with symptomatic treatment. Resume home medication. Monitor labs and vitals. DVT and GI prophylaxis. Further recommendations as per clinical course of the patient Dictation was produced using [employer] dictation software. please excuse any grammatical, word or spelling errors. Objective - Vital Signs Vital signs: Vital Signs Temp 98.4 F 10/21/22 07:41 Pulse 69 10/21/22 07:41 Resp 21 10/21/22 07:41 BP 128/73 10/21/22 07:41 Pulse Ox 99 10/21/22 07:41 FiO2 Intake & Output 10/20/22 10/21/22 10/21/22 18:59 06:59 18:59 Intake Total 1025 Balance 1025 Weight 118.841 kg Intake: Intake, IV Titration 1025 Amount Sodium Chloride 0.9% 1, 525 000 ml @ 75 mls/hr IV . [id number] LOUIE Rx#:[id number] Vancomycin 2,000 mg In 500 Sodium Chloride 0.9% 500 ml 500 ml @ 167 mls/hr IVPB Q16H LOUIE Rx#: [id number] Other: # Voids 2 - Labs CBC & Chem 7: 10/21/22 07:14 10/21/22 07:14 Labs: Abnormal Lab Results - Last 24 Hours (Table) 10/20/22 10/21/22 Range/Units 08:56 07:14 WBC 3.82 L (4.50-10.00) X 10*3/uL ESR 52 H (0-20) mm/hr Microbiology - Last 24 Hours (Table) 10/20/22 08:56 Gram Stain - Preliminary Wrist - Right Wound Culture - Preliminary Presumptive MRSA
[2022-10-21] MEDS: ETODOLAC 200 MG CAPSULE PO PRN ×2 (15:07→21:26)
[2022-10-21] MEDS: CYANOCOBALAMIN 500 MCG TAB PO SCH (15:07)
[2022-10-21] MEDS: CHOLECALCIFEROL 25 MCG (1000 IU) TABLET PO SCH (15:07)
[2022-10-21] MEDS: LORATADINE 10 MG TAB PO SCH (15:08)
[2022-10-21] MEDS: FLUTICASONE 50MCG/SPRAY NASAL 16GM EA NOSTRIL SCH (16:31)
[2022-10-21 20:18] VITALS: RESP 18
[2022-10-21] MEDS: FLUTICASONE 44 MCG INHALER INHALATION SCH (20:19)
[2022-10-22] MEDS: VANCOMYCIN 2,000 MG in SODIUM CHLORIDE 0.9% 500 ML 500 ML IVPB SCH (05:46)
[2022-10-22] MEDS: LEVOTHYROXINE 125 MCG TAB PO SCH (05:46)
[2022-10-22] MEDS: traMADol 50 MG TAB PO PRN (05:48)
[2022-10-22 06:43] LABS: Basophils % (A) 0 %; Eosinophils # (A) 0.1 k/uL (0-0.7); Eosinophils % (A) 4 %; HCT 40.1 % (34.0-46.0); HGB 13.6 gm/dL (11.4-16.0); Lymphocytes # (A) 1.1 k/uL (1.0-4.8); Lymphocytes % (A) 28 %; MCH 29.8 pg (25.0-35.0); MCHC 33.8 g/dL (31.0-37.0); MCV 88.3 fL (80.0-100.0); Mean Platelet Volume 8.5; Monocytes # (A) 0.2 k/uL (0-1.0); Monocytes % (A) 5 %; Neutrophils # (A) 2.3 k/uL (1.3-7.7); Neutrophils % (A) 61 %; Platelet Count 179 k/uL (150-450); RBC 4.55 m/uL (3.80-5.40); RDW 13.8 % (11.5-15.5); WBC 3.8 k/uL (3.8-10.6)
[2022-10-22 06:58] LABS: ALT 16 U/L (4-34); AST 24 U/L (14-36); African American GFR (CKD) >90 (>60 ml/min/1.73 sqM); Albumin 3.5 g/dL (3.5-5.0); Albumin/Globulin Ratio 1.2; Alkaline Phosphatase 62 U/L (38-126); Anion Gap 8 mmol/L; Blood Urea Nitrogen 12 mg/dL (7-17); Carbon Dioxide 24 mmol/L (22-30); Chloride 110 mmol/L (98-107); Globulin 2.9 g/dL; Glucose 95 mg/dL (74-99); Non-African American GFR(CKD) >90 (>60 ml/min/1.73 sqM); Potassium 4.4 mmol/L (3.5-5.1); Sodium 142 mmol/L (137-145); Total Bilirubin 0.6 mg/dL (0.2-1.3); Total Protein 6.4 g/dL (6.3-8.2)
[2022-10-22 07:23] VITALS: BP 140/78; PULSE 59; TEMP 97.8
[2022-10-22] MEDS ORDERED: PANTOPRAZOLE 40 MG TABLET PO SCH (07:30)
[2022-10-22] MEDS: CYANOCOBALAMIN 500 MCG TAB PO SCH (08:07)
[2022-10-22] MEDS: LORATADINE 10 MG TAB PO SCH (08:07)
[2022-10-22] MEDS: CHOLECALCIFEROL 25 MCG (1000 IU) TABLET PO SCH (08:07)
[2022-10-22] MEDS: GABAPENTIN 300 MG CAP PO SCH (08:07)
[2022-10-22] MEDS: FLUTICASONE 44 MCG INHALER INHALATION SCH (08:12)
[2022-10-22] MEDS ORDERED: CALCIUM CARB-VIT D 500 MG-5 MCG TAB PO SCH (09:00)
[2022-10-22] MEDS ORDERED: ZINC SULFATE 220 MG CAP PO SCH (09:00)
[2022-10-22] MEDS ORDERED: NON FORMULARY DRUG (Phentermine Hcl [Adipex-P] 37.5 MG Tablet) PO SCH (09:00)
[2022-10-22] MEDS: FLUTICASONE 50MCG/SPRAY NASAL 16GM EA NOSTRIL SCH (09:15)
--- NOTE | 2022-10-22 12:48 | P.DS ---
Providers Date of admission: 10/20/22 09:40 Expected date of discharge: 10/22/22 Attending physician: Lew Siddiqui MD Consults: 10/20/22 09:40 Consult Physician Routine Consulting Provider: Kevin Encarnacion Consult Reason/Comments: cellulitis Do you want consulting provider notified?: Yes Consult Physician Routine Consulting Provider: Wil Hunter Consult Reason/Comments: cellulitis Do you want consulting provider notified?: Yes Primary care physician: David Roland Hospital Course: Discharge diagnoses; Right wrist cellulitis Hypothyroidism Hospital course; patient is a 66-year-old lady with past medical history significant for hypothyroidism, recent carpal tunnel surgery who presented to The ER because of right wrist pain. Patient recently underwent carpal surgery in [place]. Patient was evaluated 2 days ago in the ER because of right wrist pain, at that time was found to have redness, was discharged on oral antibiotics. Patient continued to have worsening pain and redness. Denies any fever or chills at home. Because of the symptoms, patient came to the ER Initial lab work done in the ER showed WBC 6.1, hemoglobin 12.6, platelet count 188, sodium 1:30, potassium 4.8, BUN 15, creatinine 0.65, alk phos 81, patient admitted to medicine service 10/21. Patient seen and examined. Erythema of right wrist has improved. Patient states pain is also improved. 10/22. Patient seen and examined. Right wrist erythema and pain improved. ID recommended discharging patient on doxycycline for 10 days. PHYSICAL EXAMINATION: GENERAL: The patient is alert and oriented x3, not in any acute distress. Well developed, well nourished. HEENT: Pupils are round and equally reacting to light. EOMI. No scleral icterus. No conjunctival pallor. Normocephalic, atraumatic. No pharyngeal erythema. No thyromegaly. CARDIOVASCULAR: S1 and S2 present. No murmurs, rubs, or gallops. PULMONARY: Chest is clear to auscultation, no wheezing or crackles. ABDOMEN: Soft, nontender, nondistended, normoactive bowel sounds. No palpable organomegaly. MUSCULOSKELETAL: No joint swelling or deformity. EXTREMITIES: No cyanosis, clubbing, or pedal edema. NEUROLOGICAL: Gross neurological examination did not reveal any focal deficits. SKIN: No rashes. Dictation was produced using dragon dictation software. please excuse any grammatical, word or spelling errors. Patient Condition at Discharge: Good Plan - Discharge Summary Discharge Rx Participant: Yes New Discharge Prescriptions: New Doxycycline [Vibramycin] 100 mg PO BID 10 Days #20 capsule Continue Gabapentin 600 mg PO Q12H Fluticasone Nasal [place] [Flonase Nasal [place]] 1 spray EA NOSTRIL DAILY Loratadine 10 mg PO DAILY Hyoscyamine Sulfate [Hyoscyamine Sulfate SL] 0.125 mg SL Q4H PRN PRN Reason: Stomach Cramps Diclofenac Sodium [Voltaren] 25 mg PO TID PRN PRN Reason: cramps Zinc 50 mg PO DAILY Rizatriptan Benzoate [Maxalt] 10 mg PO BID PRN PRN Reason: Migraine Headache Calcium Citrate/Vitamin D3 [Citracal + D Maximum Caplet] 1 tab PO DAILY HYDROcodone/APAP 10-325MG [[place] 10-325] 1 tab PO Q6H PRN PRN Reason: Pain Phentermine HCl [Adipex-P] 37.5 mg PO DAILY Bariatric Fusion Multivitamin 1 tab PO DAILY Fluticasone Propionate 44 Mcg [Flovent 44 Mcg Inhaler] 2 puff INHALATION RT- BID Cyanocobalamin (Vitamin B-12) [Vitamin B-12] 1,000 mcg PO DAILY Albuterol Sulfate [Proventil Hfa] 2 puff INHALATION RT-Q4H PRN PRN Reason: Shortness Of Breath Levothyroxine Sodium [Synthroid] 125 mcg PO DAILY Pantoprazole [Protonix] 40 mg PO DAILY Cholecalciferol [Vitamin D3 (25 Mcg = 1000 Iu)] 50 mcg PO DAILY Galcanezumab-Gnlm [Emgality Pen] 120 mg SQ QMONTHLY Triamcinolone 0.1% Cream [Kenalog 0.1% Cream] 1 applicatio TOPICAL BID PRN PRN Reason: Rash Discontinued clindamycin HCL 300 mg PO QID 7 Days #28 cap Discharge Medication List Albuterol Sulfate [Proventil Hfa] 2 puff INHALATION RT-Q4H PRN 02/10/21 [History] Calcium Citrate/Vitamin D3 [Citracal + D Maximum Caplet] 1 tab PO DAILY 02/10/21 [History] Cholecalciferol [Vitamin D3 (25 Mcg = 1000 Iu)] 50 mcg PO DAILY 02/10/21 [History] Diclofenac Sodium [Voltaren] 25 mg PO TID PRN 02/10/21 [History] Fluticasone Nasal [place] [Flonase Nasal [place]] 1 spray EA NOSTRIL DAILY 02/10/21 [History] Gabapentin 600 mg PO Q12H 02/10/21 [History] Hyoscyamine Sulfate [Hyoscyamine Sulfate SL] 0.125 mg SL Q4H PRN 02/10/21 [History] Levothyroxine Sodium [Synthroid] 125 mcg PO DAILY 02/10/21 [History] Loratadine 10 mg PO DAILY 02/10/21 [History] Pantoprazole [Protonix] 40 mg PO DAILY 02/10/21 [History] Rizatriptan Benzoate [Maxalt] 10 mg PO BID PRN 02/10/21 [History] Zinc 50 mg PO DAILY 02/10/21 [History] Bariatric Fusion Multivitamin 1 tab PO DAILY 10/20/22 [History] Galcanezumab-Gnlm [Emgality Pen] 120 mg SQ QMONTHLY 10/20/22 [History] HYDROcodone/APAP 10-325MG [[place] 10-325] 1 tab PO Q6H PRN 10/20/22 [History] Phentermine HCl [Adipex-P] 37.5 mg PO DAILY 10/20/22 [History] Cyanocobalamin (Vitamin B-12) [Vitamin B-12] 1,000 mcg PO DAILY 10/21/22 [History] Fluticasone Propionate 44 Mcg [Flovent 44 Mcg Inhaler] 2 puff INHALATION RT-BID 10/21/22 [History] Triamcinolone 0.1% Cream [Kenalog 0.1% Cream] 1 applicatio TOPICAL BID PRN 10/21/22 [History] Doxycycline [Vibramycin] 100 mg PO BID 10 Days #20 capsule 10/22/22 [Rx] Follow up Appointment(s)/Referral(s): David Roland III, MD [Primary Care Provider] - 1-2 days Wil Hunter MD [STAFF PHYSICIAN] - 1 Week Discharge Disposition: HOME SELF-CARE
[2022-10-23] MEDS ORDERED: VANCOMYCIN TROUGH DUE 1 EACH MISC MISCELLANE ONE (12:00)
== END 2022-10-22 15:32 | disposition home or self-care (01) | DRG 863 ==
LOC: EC 08:14 → 4SSUR 09:40
PROVIDERS: ADMIT Internal Medicine; ATTEND Internal Medicine
DX: T81.49XA Infection following a procedure, other surgical site, initial encounter (principal); L03.113 Cellulitis of right upper limb; T81.31XA Disruption of external operation (surgical) wound, not elsewhere classified, initial encounter; L02.413 Cutaneous abscess of right upper limb; E03.9 Hypothyroidism, unspecified; Z79.890 Hormone replacement therapy; J45.909 Unspecified asthma, uncomplicated; B95.62 Methicillin resistant Staphylococcus aureus infection as the cause of diseases classified elsewhere; G89.29 Other chronic pain; Z88.1 Allergy status to other antibiotic agents; Z79.51 Long term (current) use of inhaled steroids; Z79.899 Other long term (current) drug therapy; Z88.5 Allergy status to narcotic agent; Z88.7 Allergy status to serum and vaccine; Z88.6 Allergy status to analgesic agent; Y84.8 Other medical procedures as the cause of abnormal reaction of the patient, or of later complication, without mention of misadventure at the time of the procedure; Z98.84 Bariatric surgery status; Z88.2 Allergy status to sulfonamides; Z88.0 Allergy status to penicillin; Z91.048 Other nonmedicinal substance allergy status
CPT/HCPCS: 36415; 80053; 82565; 83605; 85025; 85610; 85652; 85730; 86140; 87040; 87070; 87077; 87186; 87205; 94640; 96365; 99285

== ENCOUNTER → 2022-12-27 | Outpatient (CLI) | payer MEDICARE, OTHER ==
--- NOTE | 2022-12-27 13:01 | BD ---
EXAMINATION TYPE: Axial Bone Density DATE OF EXAM: 12/27/2022 CLINICAL HISTORY: 67 years old Female. ICD-10 CODE: M41521 SCREENING FOR OSTEOPOROSIS Height: 66" Weight: 250lbs FRAX RISK QUESTIONS: Alcohol (3 or more units per day): No Family History (Parent hip fracture): Yes, Mother broke both Glucocorticoids (More than 3mos): No (Ex: prednisone, prednisolone, methylprednisolone, dexamethasone, and hydrocortisone). History of Fracture in Adulthood: No Secondary Osteoporosis: 1. Type 1 Diabetes: No 2. Hyperthyroidism: No 3. Menopause before 45: No 4. Malnutrition: No 5. Chronic liver disease: No Rheumatoid Arthritis: No Current Tobacco Use: No RISK FACTORS HISTORY OF: Hip Fracture (Right/Left): No Spine Fracture: No History of Wrist Fracture: No Surgery to Spine/Hip(right/left)/Wrist (right/left): Bilateral carpal tunnel sx Family History of Osteoporosis: Yes, Mother Active: Yes Diet low in dairy products/other sources of calcium: Yes Postmenopausal woman: Yes Lost more than 2 inches in height since high school: No Frequent falls: No Poor Health: No Hyperparathyroidism: No Adrenal Insufficiency: No MEDICATIONS: Prednisone or other steroids: No Thyroid Medications: Yes Which medication: Synthroid How Long: Since 2008 Osteoporosis Medications: No Additional Medications: Citrical, Vitamin D, B12, Iron, Synthroid, Zinc, Gabapentin, [place] Additional History: Gastric bypass in 1997 EXAM MEASUREMENTS: Bone mineral densitometry was performed using the [employer] System. Bone mineral density as measured about the Lumbar spine is: ----- L1-L4(G/cm2): 1.351 T Score Values are as follows: ----- L1: 1.2 ----- L2: 1.0 ----- L3: 1.4 ----- L4: 1.8 ----- L1-L4: 1.4 Z Score Values are as follows: ----- L1: 1.6 ----- L2: 1.4 ----- L3: 1.9 ----- L4: 2.2 ----- L1-L4: 1.9 Baseline @MPH Bone mineral density about the R hip (g/cm2): 0.886 Bone mineral density about the L hip (g/cm2): 0.956 T Score values are as follows: -----R Neck: -1.9 -----L Neck: -1.6 -----R Total: -1.0 -----L Total: -0.4 Z Score values are as follows: -----R Neck: -1.1 -----L Neck: -0.8 -----R Total: -0.6 -----L Total: 0.0 Baseline @MPH FRAX%s: The graph provided illustrates a 16.8% chance for a major osteoporotic fx and a 1.5% chance f or the hips probability for fx in 10 years time. IMPRESSION: Osteopenia (T Score between -2.5 and -1). There is slightly increased risk of fracture and the patient may be considered for treatment. Re-Screen 2-5 years. NOTE: T-SCORE=SD OF THE YOUNG ADULT MEAN.
--- NOTE | 2022-12-28 09:31 | MM ---
Reason for Exam: Screening (asymptomatic). Last screening mammogram was performed 12 month(s) ago. Patient History: Menarche at age 13. First Full-Term at age 20. Postmenopausal. Patient has history of breast feeding. Patient used Hormonal Contraceptives for 1 year. Daughter had ovarian cancer. Risk Values: Sheree 5 year model risk: 1.2%. NCI Lifetime model risk: 4.4%. Prior Study Comparison: 06/29/2016 Screening Mammogram, [facility]. 08/02/2017 Screening Mammogram, [facility]. 11/14/2018 Screening Mammogram, [facility]. 12/02/2019 Screening Mammogram, [facility] 12/10/2020 Bilateral Screening Mammogram, [facility]. 12/14/2021 Bilateral MG 3D screening mammo w/cad, [facility]. Tissue Density: There are scattered fibroglandular densities. Findings: Analyzed By CAD. There is no suspicious group of microcalcifications or new suspicious mass in either breast. Overall Assessment: Benign, BI-RAD 2 Management: Screening Mammogram of both breasts in 1 year. . Patient should continue monthly self-breast exams. A clinical breast exam by your physician is recommended on an annual basis. This exam should not preclude additional follow-up of suspicious palpable abnormalities. Note on Sheree scores and lifetime risk: 1. A Sheree score greater than 3% is considered moderate risk. If this is the case, consider specialist referral to assess eligibility for a risk reducing agent. 2. If overall lifetime risk for the development of breast cancer is 20% or higher, the patient may qualify for future screening with alternating mammogram and breast MRI. Electronically signed and approved by: Chon Stockton M.D. Radiologis
== END | disposition home or self-care (01) ==
LOC: RADMAMWWP 06:46
PROVIDERS: ATTEND Family Medicine
DX: Z12.31 Encounter for screening mammogram for malignant neoplasm of breast (principal); Z13.820 Encounter for screening for osteoporosis; M85.89 Other specified disorders of bone density and structure, multiple sites; Z78.0 Asymptomatic menopausal state
CPT/HCPCS: 77063; 77067; 77080

== ENCOUNTER 2023-06-20 09:43 | Emergency (ER) | payer MEDICARE, OTHER ==
--- NOTE | 2023-06-20 10:05 | ED ---
Recheck HPI - General Chief Complaint: Recheck/Abnormal Lab/Rx Stated Complaint: PICC line issue Time Seen by Provider: 06/20/23 09:53 Source: patient, RN notes reviewed Mode of arrival: ambulatory Limitations: no limitations - History of Present Illness Initial Comments: This is a 67-year-old female who presents to the emergency department for problems with her PICC line. Patient has a PICC line in the right arm that she states has been there for about 4 weeks. She has this due to osteomyelitis and MRSA in the left foot. Currently receiving daptomycin every 24 hours. She had the dressing changed on the PICC line yesterday and today she noticed that the line would not flush. - Related Data Home Medications Medication Instructions Recorded Confirmed Albuterol Sulfate [Proventil Hfa] 2 puff INHALATION RT-Q4H PRN 02/10/21 06/19/23 Calcium Citrate/Vitamin D3 1 tab PO DAILY 02/10/21 06/19/23 [Citracal + D Maximum Caplet] Cholecalciferol [Vitamin D3 (25 50 mcg PO DAILY 02/10/21 06/19/23 Mcg = 1000 Iu)] Diclofenac Sodium [Voltaren] 25 mg PO TID PRN 02/10/21 06/19/23 Fluticasone Nasal [place] [Flonase 1 spray EA NOSTRIL DAILY 02/10/21 06/19/23 Nasal [place]] Gabapentin 600 mg PO Q12H 02/10/21 06/19/23 Hyoscyamine Sulfate [Hyoscyamine 0.125 mg SL Q4H PRN 02/10/21 06/19/23 Sulfate SL] Levothyroxine Sodium [Synthroid] 125 mcg PO DAILY 02/10/21 06/19/23 Loratadine 10 mg PO DAILY 02/10/21 06/19/23 Pantoprazole [Protonix] 40 mg PO DAILY 02/10/21 02/06/23 Rizatriptan Benzoate [Maxalt] 10 mg PO BID PRN 02/10/21 02/06/23 Zinc 50 mg PO DAILY 02/10/21 02/06/23 Bariatric Fusion Multivitamin 1 tab PO DAILY 10/20/22 06/19/23 Galcanezumab-Gnlm [Emgality Pen] 120 mg SQ QMONTHLY 10/20/22 06/19/23 HYDROcodone/APAP 10-325MG [[place] 1 tab PO Q6H PRN 10/20/22 06/19/23 10-325] Phentermine HCl [Adipex-P] 37.5 mg PO DAILY 10/20/22 02/06/23 Cyanocobalamin (Vitamin B-12) 1,000 mcg PO DAILY 10/21/22 06/19/23 [Vitamin B-12] Fluticasone Propionate 44 Mcg 2 puff INHALATION RT-BID 10/21/22 06/19/23 [Flovent 44 Mcg Inhaler] Triamcinolone 0.1% Cream [Kenalog 1 applicatio TOPICAL BID PRN 10/21/22 02/06/23 0.1% Cream] DAPTOmycin [Cubicin] 700 mg IV DAILY 06/19/23 06/19/23 rifAMPin [Rifampin] 300 mg PO BID 06/19/23 06/19/23 Allergies Allergy/AdvReac Type Severity Reaction Status Date / Time morphine Allergy Severe Rapid Verified 06/20/23 09:51 Heart Rate acetaminophen [From Percocet] Allergy Unknown Verified 06/20/23 09:51 Influenza Virus Vaccines Allergy Nausea & Verified 06/20/23 09:51 Vomiting & Diarrhea oxycodone [From Percocet] Allergy Unknown Verified 06/20/23 09:51 Penicillins Allergy Anaphylaxis Verified 06/20/23 09:51 Sulfa (Sulfonamide Allergy Rash/Hives Verified 06/20/23 09:51 Antibiotics) glue Allergy Swelling Uncoded 06/20/23 09:51 paper tape Allergy Tears skin Uncoded 06/20/23 09:51 Review of Systems ROS Statement: Those systems with pertinent positive or pertinent negative responses have been documented in the HPI. ROS Other: All systems not noted in ROS Statement are negative. Past Medical History Past Medical History: Asthma, GERD/Reflux, Thyroid Disorder Additional Past Medical History / Comment(s): chronic pain History of Any Multi-Drug Resistant Organisms: None Reported Date of last positivie culture/infection: 10/20/22 MDRO Source:: Right Wrist Past Surgical History: Bariatric Surgery, Joint Replacement, Orthopedic Surgery Additional Past Surgical History / Comment(s): CARPAL TUNNEL SURGERY RIGHT WRIST, cataract surgery 2021, left foot surgery 01/2022, left ankle surgery 05/2023 Past Psychological History: No Psychological Hx Reported Smoking Status: Former smoker Past Alcohol Use History: Occasional Past Drug Use History: None Reported General Exam Limitations: no limitations General appearance: alert, in no apparent distress Head exam: Present: atraumatic, normocephalic, normal inspection Respiratory exam: Present: normal lung sounds bilaterally. Absent: respiratory distress, wheezes, rales, rhonchi, stridor Cardiovascular Exam: Present: regular rate, normal rhythm, normal heart sounds. Absent: systolic murmur, diastolic murmur, rubs, gallop, clicks Neurological exam: Present: alert, oriented X3, CN II-XII intact Psychiatric exam: Present: normal affect, normal mood Skin exam: Present: warm, dry, intact, normal color. Absent: rash Course Vital Signs 06/20/23 09:46 Temperature 98.1 F Pulse Rate 82 Respiratory 18 Rate Blood Pressure 140/84 O2 Sat by Pulse 98 Oximetry Medical Decision Making - Medical Decision Making This is a 67 year old female who presents to the emergency department for problems with her PICC line. Was pt. sent in by a medical professional or institution? @ -No Did you speak to anyone other than the patient for history? @ -No Did you review nursing and triage notes? @ -Yes, and I agree, it is accurate with regards to the patient's symptoms. Were old charts reviewed? @ -No Differential Diagnosis? @ -Differential PICC Line Problem: Malfunction, occlusion, kinked line, infection, this is not meant to be an all- inclusive list. EKG interpreted by me (3pts min.)? @ -Not obtained X-rays interpreted by me (1pt min.)? @ -Not obtained CT interpreted by me (1pt min.)? @ -Not obtained U/S interpreted by me (1pt. min.)? @ -Not obtained What testing was considered but not performed? (CT, X-rays, U/S, labs)? Why? @ -None What meds were considered but not given? Why? @ -None Did you discuss the management of the patient with other professionals? @ -No Did you reconcile home meds? @ -No Was smoking cessation discussed for >3mins.? @ -No Was critical care preformed (if so, how long)? @ -No Were there social determinants of health that impacted care today? How? (Homelessness, low income, unemployed, alcoholism, drug addiction, transportation, low edu. Level, literacy, decrease access to med. care, fpc, rehab)? @ -No Was there de-escalation of care discussed even if they declined? (Discuss DNR or withdrawal of care, Hospice)? @ -No What co-morbidities impacted this encounter? (DM, HTN, Smoking, COPD, CAD, Cancer, CVA, Hep., AIDS, mental health diagnosis, sleep apnea, morbid obesity)? @ -Osteomyelitis, MRSA Was patient admitted / discharged? @ -Discharged. The PICC line was evaluated by nursing staff and able to be flushed. They advised that the line appeared to be kinked. This was corrected and the PICC line was working appropriately. Patient discharged home in stable condition and will follow-up with her primary care provider and infectious disease. Undiagnosed new problem with uncertain prognosis? @ -None Drug Therapy requiring intensive monitoring for toxicity (Heparin, Nitro, Insulin, Cardizem)? @ -None Were any procedures done? @ -None Diagnosis/symptom? @ -Problem with PICC line Acute, or Chronic, or Acute on Chronic? @ -Acute Uncomplicated (without systemic symptoms) or Complicated (systemic symptoms)? @ -Uncomplicated Side effects of treatment? @ -None Exacerbation, Progression, or Severe Exacerbation] @ -Not applicable Poses a threat to life or bodily function? @ -No Return precautions reviewed in depth, the patient is instructed to return to the emergency department with any new, worsening, or concerning symptoms. Patient verbalized understanding. This case was discussed in detail with the attending ED physician, Dr. Samuels. Presentation, findings, and treatment plan discussed in detail as well. Disposition Clinical Impression: S/P PICC central line placement Disposition: HOME SELF-CARE Instructions (If sedation given, give patient instructions): How to Flush Your PICC (Peripherally Inserted Central Catheter) (ED) Additional Instructions: Return to the emergency department with any new, worsening, or concerning symptoms. Follow up with your primary care provider in 1-2 days. Is patient prescribed a controlled substance at d/c from ED?: No Referrals: Garrett Westfall DO [Primary Care Provider] - 1-2 days Time of Disposition: 10:05
[2023-06-20 10:28] VITALS: BP 140/84; PULSE 82; RESP 18; TEMP 98.1
== END 2023-06-20 13:20 | disposition home or self-care (01) ==
LOC: EC 09:43
DX: T82.594A Other mechanical complication of infusion catheter, initial encounter (principal); M86.9 Osteomyelitis, unspecified; B95.62 Methicillin resistant Staphylococcus aureus infection as the cause of diseases classified elsewhere; Z87.891 Personal history of nicotine dependence; Z88.5 Allergy status to narcotic agent; Z88.6 Allergy status to analgesic agent; Z88.7 Allergy status to serum and vaccine; Z88.0 Allergy status to penicillin; Z88.2 Allergy status to sulfonamides; Z91.048 Other nonmedicinal substance allergy status; Z91.09 Other allergy status, other than to drugs and biological substances
CPT/HCPCS: 99282

== ENCOUNTER → 2023-11-30 | Outpatient (CLI) | payer MEDICAID, MEDICARE, OTHER ==
[2023-11-30 15:38] LABS: Basophils # (A) 0.04 X 10*3/uL (0.00-0.10); Basophils % (A) 0.8 %; Eosinophils # (A) 0.12 X 10*3/uL (0.04-0.35); Eosinophils % (A) 2.4 %; HCT 37.8 % (37.2-46.3); HGB 11.7 g/dL (12.0-15.0); Lymphocytes # (A) 1.46 X 10*3/uL (0.90-5.00); Lymphocytes % (A) 29.7 %; MCH 25.5 pg (27.0-32.0); MCV 82.5 FL (80.0-97.0); Mean Platelet Volume 12.3 FL (9.5-12.2); Monocytes # (A) 0.36 X 10*3/uL (0.20-1.00); Monocytes % (A) 7.3 %; NRBC Per 100 WBC 0 X 10*3/uL (0.00-0.01); Neutrophils # (A) 2.91 X 10*3/uL (1.80-7.70); Neutrophils % (A) 59.4 %; Platelet Count 231 X 10*3/uL (140-440); RBC 4.58 X 10*6/uL (4.10-5.20); RDW 15.4 % (11.5-14.5); WBC 4.91 X 10*3/uL (4.50-10.00)
[2023-11-30 15:58] LABS: Erythrocyte Sedimentation Rate 24 mm/Hr (0-30)
== END | disposition home or self-care (01) ==
LOC: LABWHC1 10:50
PROVIDERS: ATTEND Orthopaedic Surgery Adult Reconstructive Orthopaedic Surgery
DX: T84.84XA Pain due to internal orthopedic prosthetic devices, implants and grafts, initial encounter
CPT/HCPCS: 36415; 85025; 85652; 86140

== ENCOUNTER → 2024-01-25 | Outpatient (CLI) | payer MEDICARE, OTHER ==
--- NOTE | 2024-01-29 11:28 | MM ---
Reason for Exam: Screening (asymptomatic). Last mammogram was performed 1 year(s) and 1 month(s) ago. Patient History: Menarche at age 13. First Full-Term at age 20. Postmenopausal. Patient has history of breast feeding. Patient used Hormonal Contraceptives for 1 year. Daughter had ovarian cancer. Risk Values: Sheree 5 year model risk: 1.2%. NCI Lifetime model risk: 4.2%. Prior Study Comparison: 12/10/2020 Bilateral Screening Mammogram, [facility]. 12/14/2021 Bilateral MG 3D screening mammo w/cad, [facility]. 12/27/2022 Bilateral MG 3D screening mammo w/cad, [facility]. Tissue Density: The breasts are almost entirely fatty. Findings: Analyzed By CAD. There is no suspicious group of microcalcifications or new suspicious mass in either breast. Overall Assessment: Benign, BI-RAD 2 Management: Screening Mammogram of both breasts in 1 year. . Patient should continue monthly self-breast exams. A clinical breast exam by your physician is recommended on an annual basis. This exam should not preclude additional follow-up of suspicious palpable abnormalities. Note on Sheree scores and lifetime risk: 1. A Sheree score greater than 3% is considered moderate risk. If this is the case, consider specialist referral to assess eligibility for a risk reducing agent. 2. If overall lifetime risk for the development of breast cancer is 20% or higher, the patient may qualify for future screening with alternating mammogram and breast MRI. [facility], , 01/29/2024 11:25 AM. Electronically signed and approved by: Chon Stockton M.D. Radiologis
== END | disposition home or self-care (01) ==
LOC: RADMAMWWP 11:00
PROVIDERS: ATTEND Family Medicine
DX: Z12.31 Encounter for screening mammogram for malignant neoplasm of breast (principal); Z78.0 Asymptomatic menopausal state; Z92.0 Personal history of contraception
CPT/HCPCS: 77063; 77067

== ENCOUNTER 2024-02-21 06:50 | Day surgery (SDC) | payer MEDICARE, OTHER ==
[2024-02-19 08:47] VITALS: BMI 39.5
[2024-02-21] MEDS: IV FLUID CONTINUATION 1,000 ML IV ONE (07:48)
[2024-02-21] MEDS: LACTATED RINGERS 1,000 ML IV SCH (08:06)
[2024-02-21 08:08] VITALS: TEMP 97
[2024-02-21] MEDS ORDERED: PROPOFOL 10 MG/ML 20 ML VIAL IV ONE (08:13)
[2024-02-21] MEDS ORDERED: LIDOCAINE 1% INJ 10MG/ML (20 ML MDV) ONE (08:13)
--- NOTE | 2024-02-21 08:39 | P.PCN ---
Date of Procedure: 02/21/24 Procedure(s) Performed: Brief history: Patient is a pleasant 68-year-old white male scheduled for an elective upper endoscopy as well as colonoscopy as a part of evaluation of GERD/iron deficiency anemia and screening for colon cancer Procedure performed: Esophagogastroduodenoscopy with biopsy Colonoscopy biopsy Preoperative diagnosis: GERD Iron deficiency anemia Screening for colon cancer Anesthesia: MAC Procedure: After informed consent was obtained from the patient was brought into the endoscopy unit and IV sedation was administered by anesthesia under continuous monitoring. Initially upper endoscopy was done. The Olympus GF 160 video endoscope was inserted inserted into the mouth and esophagus intubated without any difficulty and was gradually advanced into the gastric pouch. There was some gastritis noted. There was evidence of gastric bypass surgery with Hao-en-Y anastomosis that appeared normal. The scope was advanced into the jejunum at 30 cm visualized and appeared normal. Biopsies were done from the jejunum to rule out celiac disease. . The scope was then withdrawn into the esophagus. The GE junction was located at 40 cm to the incisors. It appeared regular with no erythema erosions or ulcerations. Rest of the esophagus appeared normal. Patient tolerated the procedure well. At this time the patient continued to remain sedation. Initial digital rectal examination was normal. Olympus CF 160 video colonoscope was then inserted into the rectum and gradually advanced to the cecum without any difficulty. Careful examination was performed as the scope was gradually being withdrawn. The prep was excellent. The cecum, normal. Ascending colon there was a 3 mm polyp that was removed by cold biopsy. Rest of the ascending colon, transverse colon, descending colon, sigmoid colon and rectum appeared normal. Retroflexion was performed in the rectum and no lesions were noted. Patient tolerated the procedure well. Impression: 1. Upper endoscopy revealed evidence of gastric bypass surgery with normal- appearing Hao-en-Y anastomosis, mild gastritis of the gastric pouch 2. Colonoscopy revealed 3 mm ascending colon polyp status post cold biopsy Recommendations: Findings of this examination were discussed with the patient as well as her family. She was advised to follow-up with the biopsy results. If the biopsy of the colon polyp reveals adenoma, recommended repeat colonoscopy in 5 years.
[2024-02-21 09:21] VITALS: BP 134/80; PULSE 66; RESP 16
== END 2024-02-21 09:17 | disposition home or self-care (01) ==
LOC: ORWHC2ENDO 06:50
PROVIDERS: ATTEND Internal Medicine Gastroenterology
DX: Z12.11 Encounter for screening for malignant neoplasm of colon (principal); K63.5 Polyp of colon; D50.9 Iron deficiency anemia, unspecified; K21.9 Gastro-esophageal reflux disease without esophagitis; E07.9 Disorder of thyroid, unspecified; K29.50 Unspecified chronic gastritis without bleeding; J45.909 Unspecified asthma, uncomplicated; Z89.442 Acquired absence of left ankle; Z98.84 Bariatric surgery status; Z90.01 Acquired absence of eye; Z87.891 Personal history of nicotine dependence; Z88.0 Allergy status to penicillin; Z88.2 Allergy status to sulfonamides; Z88.5 Allergy status to narcotic agent; L23.1 Allergic contact dermatitis due to adhesives; Z88.7 Allergy status to serum and vaccine; Z79.899 Other long term (current) drug therapy; Z79.890 Hormone replacement therapy; Z79.51 Long term (current) use of inhaled steroids
CPT/HCPCS: 88305; 45380; 43239; J2003; J2704

== ENCOUNTER 2024-03-08 06:03 | Emergency (ER) | payer MEDICARE, OTHER ==
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
[2024-03-08] MEDS: KETOROLAC 15 MG/ML 1 ML VIAL IVP STA (07:00)
[2024-03-08] MEDS: SODIUM CHLORIDE 0.9% 1,000 ML IV STA (07:01)
[2024-03-08 07:11] LABS: Anisocytosis Slight; HCT 40.8 % (34.0-46.0); HGB 13.1 gm/dL (11.4-16.0); Hypochromasia Slight; MCHC 32.2 g/dL (31.0-37.0); MCV 93.2 fL (80.0-100.0); Platelet Count 158 k/uL (150-450); Poikilocytosis Slight; RBC 4.37 m/uL (3.80-5.40); WBC 5.4 k/uL (3.8-10.6)
--- NOTE | 2024-03-08 08:03 | CT ---
EXAMINATION TYPE: CT abdomen pelvis wo con DATE OF EXAM: 03/08/2024 7:34 AM COMPARISON: 09/12/2022 CLINICAL INDICATION: Female, 68 years old with history of left CVA tenderness, LT CVA tenderness, hx renal stones, TECHNIQUE: Contiguous axial scanning of the abdomen and pelvis without IV contrast. Coronal and sagit yonathan reconstructions performed. CT DLP: 1220.4 mGycm. Automated exposure control for dose reduction was used. FINDINGS: Heart is upper limits of normal in size without pericardial effusion. Mosaic attenuation in the lower lungs can be seen with small airways disease is. No pleural effusion. There is a tiny hiatal hernia along with postsurgical change of Hao-en-Y gastric bypass. Chronic mahin earing submucosal fat deposition within the excluded stomach. Liver is enlarged measuring 23.3 cm. Cholecystectomy clips. Adrenal glands, spleen, and pancreas show no gross abnormality by noncontrast CT. Kidneys show bilateral parapelvic cysts measuring up to 3.1 cm on the left and 2.7 cm on the right. N o nephrolithiasis or hydronephrosis is seen. No dilated small bowel, free fluid, or free air. Redemonstrated scattered mesenteric lymph nodes measuring up to 1.3 cm, largely unchanged from 09/13/19 23 though some associated cheko mesentery appears to be slightly increased, for example, axial images 97, 102, and 109. No retroperitoneal adenopathy. There is scattered mild to moderate stool. Some mild annular thickening at the junction of the cecum and ascending colon, axial image 93 may be due to some focal peristalsis and adherent stool material. Direct visualization to exclude a mucosal lesion. Mild circumferential bladder wall thickening may be chronic from the patient. Uterus is anteverted. S mall bilateral ovaries. No abnormal fluid collection pelvis or pelvic lymphadenopathy. Bones: Mild degenerative change at the hips. Hypertrophic facet arthropathy lumbar spine with degener ative grade 1 anterolisthesis L3-L4 and L4-L5. IMPRESSION: 1. Borderline and mildly enlarged mesenteric lymph nodes remain measuring up to 1.3 cm. Some [facility] cheko mesenteric changes may be increased from last year. 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 Consider ongoing 6 to 12 month follow-up CT to ensure continued stability and exclude an ind olent lymphoma. 2. Kidneys with bilateral parapelvic cysts measuring up to 3.1 cm, various cysts having slightly inc reased from 09/12/2022. No nephrolithiasis or hydronephrosis. 3. Some mild annular soft tissue thickening at the junction of the cecum and ascending colon may be due to focal peristalsis. Correlate with direct visualization to exclude a mucosal lesion if routine screening colonoscopy is not being performed. 4. Mild circumferential bladder wall thickening may be chronic for the patient. Correlate to exclude cystitis. [facility], , 03/08/2024 8:01 AM
[2024-03-08 08:34] LABS: Band Neutrophils % 1 %; Eosinophils # (M) 0.05 k/uL (0-0.7); Lymphocytes # (M) 1.46 k/uL (1.0-4.8); Monocytes # (M) 0.32 k/uL (0-1.0); Neutrophils % (M) 65 %; Nucleated Red Blood Cells 0 /100 WBC (0-0); Total Cells Counted 100
[2024-03-08 09:05] LABS: ALT 17 U/L (4-34); African American GFR (CKD) >90 (>60 ml/min/1.73 sqM); Albumin 3.8 g/dL (3.5-5.0); Anion Gap 5 mmol/L; Blood Urea Nitrogen 19 mg/dL (7-17); Calcium 8.4 mg/dL (8.4-10.2); Carbon Dioxide 26 mmol/L (22-30); Chloride 109 mmol/L (98-107); Glucose 82 mg/dL (74-99); Non-African American GFR(CKD) >90 (>60 ml/min/1.73 sqM); Sodium 140 mmol/L (137-145); Total Bilirubin 0.6 mg/dL (0.2-1.3); Total Protein 6.1 g/dL (6.3-8.2)
[2024-03-08 09:17] LABS: AST 22 U/L (14-36); Alkaline Phosphatase 52 U/L (38-126); Potassium 4.6 mmol/L (3.5-5.1)
[2024-03-08 09:34] LABS: Appearance,Urine Clear (Clear); Bilirubin,Urine Negative (Negative); Blood,Urine Negative (Negative); Color,Urine Colorless; Glucose,Urine (UA) Negative (Negative); Ketones,Urine Negative (Negative); Leukocyte Esterase,Urine Negative (Negative); Nitrite,Urine Negative (Negative); Protein,Urine Negative (Negative); Specific Gravity,Urine 1.008 (1.001-1.035); Urobilinogen,Urine <2.0 mg/dL (<2.0)
[2024-03-08 10:40] VITALS: BP 132/86; PULSE 57; RESP 17; TEMP 97.7
== END 2024-03-08 10:39 | disposition home or self-care (01) ==
LOC: EC 06:03
DX: G89.29 Other chronic pain (principal); K65.4 Sclerosing mesenteritis; Z88.0 Allergy status to penicillin; Z88.1 Allergy status to other antibiotic agents; Z88.2 Allergy status to sulfonamides; Z88.5 Allergy status to narcotic agent; Z88.7 Allergy status to serum and vaccine; Z88.8 Allergy status to other drugs, medicaments and biological substances; Z87.891 Personal history of nicotine dependence
CPT/HCPCS: 36415; 74176; 80053; 81003; 83605; 85025; 96360; 99284

== ENCOUNTER → 2024-06-07 | Outpatient (CLI) | payer MEDICARE, OTHER ==
--- NOTE | 2024-06-07 10:42 | US ---
EXAMINATION TYPE: US kidneys/renal and bladder DATE OF EXAM: 06/07/2024 COMPARISON: 1124 CLINICAL INDICATION: Female, 68 years old with history of N28.9 DISORDER OF KIDNEY AND URETER; Hx sto [place] with stents. Back pain. Findings on MRI TECHNIQUE: Grayscale imaging of the bilateral kidneys and urinary bladder: FINDINGS: EXAM MEASUREMENTS: Right Kidney: 13.0 x 5.0 x 5.0 cm Left Kidney: 11.4 x 5.4 x 6.9 cm Post Void Residual Volume: NA mL Right Kidney: wnl, no evidence for hydronephrosis, mass or renal calculus. Left Kidney: Limited visualization, ?multiple subcentimeter cysts Bladder: WNL Bilateral Jets seen: No Normal Post Void Residual: NA There is no evidence for hydronephrosis at this point in time. No nephrolithiasis is seen. No distin ct right renal masses. Limited visualization of left kidney with multiple renal sinus cysts correspon ding to prior CT. Cortical medullary differentiation is again bilaterally. The urinary bladder is an echoic. IMPRESSION: 1. No hydronephrosis or nephrolithiasis. 2. Left renal renal sinus cysts correspond to prior CT. [facility], , 06/07/2024 10:40 AM
== END | disposition home or self-care (01) ==
LOC: RADUSWWP 09:37
PROVIDERS: ATTEND Family Medicine
DX: N28.1 Cyst of kidney, acquired (principal); N28.9 Disorder of kidney and ureter, unspecified
CPT/HCPCS: 76770